=== PATIENT | male | born 1960 | race Caucasian/White ===

== ENCOUNTER → 2018-03-27 | Outpatient (CLI) | payer BC ==
--- NOTE | 2018-03-27 07:33 | US ---
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 Abnormal blood work. EXAM MEASUREMENTS: Liver Length: 17.4 cm Gallbladder Wall: 0.1 cm CBD: 0.3 cm Right Kidney: 12.0 x 5.4 x 4.6 cm Pancreas: Obscured by bowel gas Liver: There is increased and coarsened echogenicity of the hepatic parenchyma with diminished visua lization of the portal triads limiting evaluation for underlying hepatic masses. Gallbladder: comet tail artifacts coming from anterior wall without dirty shadowing therefore findin gs are most compatible with subsegmental adenomyomatosis. Additionally there is no gallbladder wall t hickening or pericholecystic fluid. Evidence for sonographic Pearce's sign: No CBD: wnl Right Kidney: No hydronephrosis or masses seen IMPRESSION: 1. Coarsened and hyperechoic hepatic echotexture compatible the patient's known history of hepatocell ular disease. If there is abnormal AFP or further clinical concern screening MRI could be performed i n evaluation for small hepatocellular carcinomas. 2. Findings most compatible with subsegmental adenomyomatosis. 3. Obscuration of the pancreas by overlying bowel gas.
[2018-03-27 08:00] LABS: Basophils % (A) 0 %; Eosinophils # (A) 0.2 k/uL (0-0.7); Eosinophils % (A) 3 %; HCT 38.7 % (39.0-53.0); HGB 13.1 gm/dL (13.0-17.5); Lymphocytes # (A) 2.7 k/uL (1.0-4.8); Lymphocytes % (A) 53 %; MCH 30.2 pg (25.0-35.0); MCHC 33.9 g/dL (31.0-37.0); MCV 89.2 fL (80.0-100.0); Mean Platelet Volume 7.5; Monocytes # (A) 0.3 k/uL (0-1.0); Monocytes % (A) 5 %; Neutrophils # (A) 1.7 k/uL (1.3-7.7); Neutrophils % (A) 35 %; Platelet Count 157 k/uL (150-450); RBC 4.34 m/uL (4.30-5.90); RDW 13.5 % (11.5-15.5)
[2018-03-27 08:09] LABS: INR 1.1 (<1.2); Prothrombin Time 11.7 sec (9.0-12.0)
[2018-03-27 08:15] LABS: Bilirubin, Delta 0.1 mg/dL (0.0-0.2); Bilirubin,Unconjugated 0.2 mg/dL (0.0-1.1); Total Bilirubin 0.3 mg/dL (0.2-1.3); Total Protein 7.1 g/dL (6.3-8.2)
[2018-03-28 15:23] LABS: HCV Quant Log <1.08 (<1.08); HCV Quantitative Result <12 IU/mL (<12)
== END | disposition home or self-care (01) ==
LOC: RADUSWWP 06:51
PROVIDERS: ATTEND Internal Medicine Gastroenterology
DX: K76.89 Other specified diseases of liver (principal); B18.2 Chronic viral hepatitis C
CPT/HCPCS: 36415; 76705; 80076; 85025; 85610; 87522

== ENCOUNTER → 2018-05-26 | Outpatient (CLI) | payer BC ==
[2018-05-26 08:21] LABS: HGB 13.9 gm/dL (13.0-17.5); MCH 29.7 pg (25.0-35.0); MCV 89.9 fL (80.0-100.0); Mean Platelet Volume 6.8; Platelet Count 194 k/uL (150-450); RBC 4.67 m/uL (4.30-5.90); WBC 5.3 k/uL (3.8-10.6)
[2018-05-26 08:30] LABS: INR 1.1 (<1.2)
[2018-05-26 08:31] LABS: Prothrombin Time 11.3 sec (9.0-12.0)
[2018-05-26 16:11] LABS: Protein, Total 7.1 g/dL (6.2-8.2)
[2018-05-26 16:37] LABS: ALT 171 U/L (10-49); AST 110 U/L (14-35); Albumin/Globulin Ratio 1.39 (1.60-3.17); Alkaline Phosphatase 70 U/L (41-126); Bilirubin, Conjugated <0.20 mg/dL (0.20-0.40); Globulin 3.1 g/dL (1.6-3.3); Total Bilirubin 0.3 mg/dL (0.3-1.2); Total Protein 7.4 g/dL (6.2-8.2)
[2018-05-26 16:38] LABS: Alpha Fetoprotein, Tumor Mkr <2.5 ng/mL (0.0-7.9)
[2018-05-27 12:23] LABS: Gamma Globulin 1.41 g/dL (0.70-1.50)
== END | disposition home or self-care (01) ==
LOC: LABWHC1 07:57
PROVIDERS: ATTEND Physician Assistant
DX: R79.89 Other specified abnormal findings of blood chemistry (principal)
CPT/HCPCS: 36415; 80076; 82105; 83516; 84165; 85027; 85610; 86038

== ENCOUNTER 2018-07-04 12:14 | Emergency (ER) | payer BC ==
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
[2018-07-04] MEDS ORDERED: ONDANSETRON 4 MG/2 ML VIAL IVP STA (13:55)
[2018-07-04] MEDS ORDERED: MORPHINE SULFATE 4 MG/ML SYRINGE IVP STA (13:56)
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
[2018-07-04] MEDS ORDERED: LIDOCAINE 1% INJ 10MG/ML (20 ML MDV) SQ ONE (16:46)
[2018-07-04 17:33] VITALS: BP 149/88; PULSE 86; RESP 16; TEMP 97.9
== END 2018-07-04 17:32 | disposition home or self-care (01) ==
LOC: EC 12:14
DX: S02.2XXA Fracture of nasal bones, initial encounter for closed fracture (principal); S05.32XA Ocular laceration without prolapse or loss of intraocular tissue, left eye, initial encounter; S01.511A Laceration without foreign body of lip, initial encounter; Z79.890 Hormone replacement therapy; Z79.899 Other long term (current) drug therapy; W38.XXXA Explosion and rupture of other specified pressurized devices, initial encounter; Y93.89 Activity, other specified
CPT/HCPCS: 70110; 70486; 70450; 99284; 12011; 96374; 96375; J2270; J2405; J2001

== ENCOUNTER 2019-10-07 16:40 | Emergency (ER) | payer BC ==
[2019-10-07 16:54] VITALS: BP 107/57; PULSE 101; RESP 18; TEMP 98.1
[2019-10-07] MEDS ORDERED: KETOROLAC 60 MG/2 ML VIAL IM STA (17:13)
[2019-10-07] MEDS ORDERED: CEPHALEXIN 500MG STARTER PACK 4 CAP BTL PO STA (17:13)
[2019-10-07] MEDS ORDERED: CEPHALEXIN 500 MG CAP PO STA (17:13)
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
== END 2019-10-07 17:37 | disposition home or self-care (01) ==
LOC: EC 16:40
DX: L03.113 Cellulitis of right upper limb (principal); E07.9 Disorder of thyroid, unspecified; Z79.890 Hormone replacement therapy; Z79.899 Other long term (current) drug therapy
CPT/HCPCS: 99283; 96372; J1885

== ENCOUNTER → 2020-04-22 | Outpatient (CLI) | payer BC ==
--- NOTE | 2020-04-22 09:49 | US ---
EXAMINATION TYPE: US liver DATE OF EXAM: 04/22/2020 COMPARISON: US CLINICAL HISTORY: R94.5 abnormal liver function test. Patient stated had Hepatitis C 20 years ago EXAM MEASUREMENTS: Liver Length: 19.3 cm Gallbladder Wall: 0.2 cm CBD: 0.5 cm Right Kidney: 11.4 x 6.3 x 4.7 cm Pancreas: hyperechoic with mid and tail obscured by overlying bowel gas Liver: enlarged, hyperechoic to right kidney and attenuated posteriorly suggests fatty liver Gallbladder: comet tail artifact seen on wall superiorly, with appearance of adenomyomatosis at fund us (echogenic, heterogeneous wall thickening). Evidence for sonographic Pearce's sign: no CBD: wnl Right Kidney: wnl IMPRESSION: Hepatomegaly with underlying fatty hepatic infiltration. Suspect adenomyomatosis of the gallbladder.
== END | disposition home or self-care (01) ==
LOC: RADUSWWP 08:28
PROVIDERS: ATTEND Internal Medicine
DX: R16.0 Hepatomegaly, not elsewhere classified (principal); K76.0 Fatty (change of) liver, not elsewhere classified
CPT/HCPCS: 76705

== ENCOUNTER → 2020-04-22 | Outpatient (CLI) | payer BC ==
[2020-04-22 15:37] LABS: Alpha Fetoprotein, Tumor Mkr 2.7 ng/mL (0.0-7.9)
[2020-04-22 15:51] LABS: Basophils # (A) 0.03 X 10*3/uL (0.00-0.10); Basophils % (A) 0.7 %; Eosinophils # (A) 0.13 X 10*3/uL (0.04-0.35); Eosinophils % (A) 2.9 %; HCT 40.3 % (39.6-50.0); HGB 13.7 g/dL (13.0-17.0); Lymphocytes # (A) 1.69 X 10*3/uL (0.90-5.00); Lymphocytes % (A) 37.1 %; MCH 29.7 pg (27.0-32.0); MCV 87.2 fL (80.0-97.0); Mean Platelet Volume 12.3 fL (9.5-12.2); Monocytes # (A) 0.53 X 10*3/uL (0.20-1.00); Monocytes % (A) 11.6 %; Neutrophils # (A) 2.16 X 10*3/uL (1.80-7.70); Neutrophils % (A) 47.3 %; Platelet Count 165 X 10*3/uL (140-440); RBC 4.62 X 10*6/uL (4.40-5.60); RDW 12.9 % (11.5-14.5); WBC 4.56 X 10*3/uL (4.50-10.00)
[2020-04-22 17:47] LABS: ALT 84 U/L (10-49); AST 69 U/L (14-35); Albumin/Globulin Ratio 1.53 (1.60-3.17); Alkaline Phosphatase 82 U/L (41-126); Bilirubin, Conjugated <0.20 mg/dL (0.20-0.40); Total Bilirubin 0.3 mg/dL (0.3-1.2); Total Protein 7.6 g/dL (6.2-8.2)
== END | disposition home or self-care (01) ==
LOC: LABWHC1 09:21
PROVIDERS: ATTEND Physician Assistant
DX: B18.2 Chronic viral hepatitis C (principal)
CPT/HCPCS: 36415; 80076; 82105; 85025; 87522

== ENCOUNTER → 2020-08-10 | Outpatient (CLI) | payer BC ==
--- NOTE | 2020-08-10 16:39 | XR ---
EXAMINATION TYPE: XR lumbar spine 2 or 3V DATE OF EXAM: 08/10/2020 CLINICAL HISTORY: Patient fell off a ladder 2 weeks ago and landed on his right hip and ankle. Patien t complains of painful to right hip, right ankle and right SI joint. TECHNIQUE: Frontal, lateral, and oblique images of the lumbar spine are obtained. COMPARISON: None FINDINGS: There are 5 nonrib-bearing lumbar-type vertebral bodies. Sacroiliac joints appear symmetric . There is straightening of the normal lumbar lordosis likely due to positioning or muscle spasm. Billy rowing of the intervertebral disc spaces at L2-3, L3-4, L4-5 and L5-S1. Multiple anterior osteophytes . No significant spondylolisthesis is seen. No loss of vertebral body height. Atherosclerotic ulcerat ion of the abdominal aorta. IMPRESSION: 1. No loss of vertebral body height suggest acute compression fracture of lumbar spine. Sacroiliac aamir ints are symmetric. 2. Multilevel intervertebral disc space narrowing of L2-3 to L5-S1. No significant spondylolisthesis. Multiple anterior ossifies.
--- NOTE | 2020-08-10 16:48 | XR ---
EXAMINATION TYPE: XR Hip Complete RT DATE OF EXAM: 08/10/2020 CLINICAL HISTORY: 59-year-old male with fall from a ladder 2 weeks ago. Patient has right hip pain. TECHNIQUE: AP and frogleg views of the right hip are obtained. COMPARISON: None. FINDINGS: There is no acute fracture/dislocation evident in the right hip. Mild narrowing of the sup erior compartment joint space with subchondral sclerosis acetabulum. This is suggestive mild osteopor osis. The overlying soft tissue appears unremarkable. IMPRESSION: There is no acute fracture or dislocation in the right hip. Mild osteoporosis of the rig ht hip.
== END | disposition home or self-care (01) ==
LOC: RADXRMAIN 10:21
PROVIDERS: ATTEND Internal Medicine
DX: M85.851 Other specified disorders of bone density and structure, right thigh (principal); M51.37 Other intervertebral disc degeneration, lumbosacral region
CPT/HCPCS: 72100; 73502

== ENCOUNTER → 2020-08-29 | Outpatient (CLI) | payer BC ==
--- NOTE | 2020-08-29 08:29 | CT ---
EXAMINATION TYPE: CT sinus wo con DATE OF EXAM: 08/29/2020 COMPARISON: 07/04/2018 HISTORY: 59-year-old male J32.9, Facial pressure and pain. CT DLP: 603 mGycm Automated exposure control for dose reduction was used. TECHNIQUE: Noncontrast axial views of the paranasal sinuses were obtained. Coronal reconstructions pe rformed. FINDINGS: PARANASAL SINUSES: Moderate mucosal thickening right maxillary sinus and right ethmoid air cells. Mild mucosal thickening right frontal sinus. Trace mucosal thickening left sphenoid sinus and left maxillary sinus. There is no air-fluid level. Slight reactive kimani- osteogenesis involving the right maxillary sinus. There is no destruction of the osseous daugherty of the paranasal sinuses. THE NASAL CAVITY: The osteomeatal complexes are patent. Leftward nasal septal deviation. Old fractures of the nasal bones and maxillary spine. The imaged brain and orbits are normal in appearance. Mastoid air cells are only partially visualized. Reformatted images confirm above findings. IMPRESSION: 1. Moderate mucosal thickening of the right maxillary sinus and right ethmoid air cells. We note some mild reactive new osteogenesis of the right maxillary sinus daugherty. 2. Additional scattered trace to mild mucosal thickening within the remaining paranasal sinuses. 3. Leftward nasal septal deviation. Old nasal bone and maxillary spine fractures.
== END | disposition home or self-care (01) ==
LOC: RADCTMAIN 07:22
PROVIDERS: ATTEND Otolaryngology
DX: J34.2 Deviated nasal septum (principal)
CPT/HCPCS: 70486

== ENCOUNTER 2020-11-02 07:19 | Day surgery (SDC) | payer BC ==
[2020-10-31 08:53] VITALS: BMI 27.3
[~2020-11-02 07:19] MED LIST: DEXAMETHASONE SOD PHOSPHATE 4 MG/ML 1 ML VIAL IV ONE; DEXAMETHASONE SOD PHOSPHATE 4 MG/ML 1 ML VIAL IV PRN; FAMOTIDINE 20 MG/2 ML VIAL IV PRN; HYDROmorphone 0.5 MG/0.5 ML SYRINGE IVP PRN; LACTATED RINGERS 1,000 ML IV SCH; ONDANSETRON 4 MG/2 ML VIAL IVP ONE; ONDANSETRON 4 MG/2 ML VIAL IVP PRN
[2020-11-02] MEDS: OXYMETAZOLINE 0.05% NASL SPRAY 1 SPRAY BOTTLE EA NOSTRIL PRN ×5 (08:10→08:29)
[2020-11-02 08:12] LABS: Glucose,Whole Blood 106 mg/dL (75-99)
[2020-11-02] MEDS ORDERED: MIDAZOLAM 2 MG/2 ML VIAL ONE (08:40)
[2020-11-02] MEDS ORDERED: LIDOCAINE 1% INJ 10MG/ML (20 ML MDV) ONE ×2 (08:40→09:23)
[2020-11-02] MEDS ORDERED: SUCCINYLCHOLINE CHLORIDE 100 MG/5 ML SYR IV ONE ×2 (08:40→09:23)
[2020-11-02] MEDS ORDERED: fentaNYL (PF) 50 MCG/ML 2 ML AMP ONE ×2 (08:40→09:23)
[2020-11-02] MEDS ORDERED: PROPOFOL 10 MG/ML 20 ML VIAL IV ONE ×2 (08:40→09:23)
[2020-11-02] MEDS ORDERED: LIDOCAINE 0.5%-EPI 1:200,000 50 ML VIAL SUBMUCOSAL ONE ×2 (08:56)
[2020-11-02] MEDS ORDERED: BACITRACIN ZINC 500 UNIT/GM OINT 28.4 GM TUBE TOPICAL ONE (09:02)
--- NOTE | 2020-11-02 10:03 | P.OP ---
Date of Procedure: 11/02/20 Preoperative Diagnosis: Deviated nasal septum Inferior turbinate hypertrophy Right-sided chronic sinusitis Right sided oral antral fistula Postoperative Diagnosis: Same Procedure(s) Performed: Septoplasty Inferior turbinoplasty Right-sided endoscopic sinus surgery including right maxillary antrostomy with removal right maxillary sinus, right anterior and posterior ethmoidectomy Repair right-sided oral antral fistula left buccal mucosa rotation advancement flap Anesthesia: VAISHALI Surgeon: Chu Peralta Estimated Blood Loss (ml): 5 Pathology: other (Nasal septal bone and cartilage of sinus contents) Condition: stable Disposition: PACU Indications for Procedure: Is a 60-year-old white male who had the right maxillary tooth extracted several months ago with resultant oral antral fistula. He also has chronic nasal airway obstruction bilaterally left greater than right and also chronic sinusitis on the right based on symptoms as well as computed tomography scan which showed chronic inflammation in the right maxillary and right ethmoid sinuses Operative Findings: Nasal septum deviated to left, inferior turbinate hypertrophy, mucosal thickening right maxillary and right ethmoid sinuses, right maxilla oral antral fistula, purulent discharge from the right middle meatus which was cultured as well as from the fistula intraorally Description of Procedure: The patient was brought into the operative suite and placed in a supine position. The patient underwent induction of general anesthesia with oral endotracheal intubation without difficulty. The patient was prepped and draped in the usual aseptic fashion with the orbits in the operating field for monitoring to the case and the computed tomography scan was on the computer screen for review throughout the case. 1% lidocaine with 1 :100,000 epinephrine was infused submucosally into both sides of the nasal septum as well as the lateral nasal wall and anterior tips of the middle turbinates. While this was taking vasoconstrictive effect the inferior turbinates were infractured with [place] elevator and partial submucous resection of the inferior turbinates was performed with a portion of the submucosal soft tissue and the inferior turbinate bone removed with Coblation device. The inferior turbinates were then outfractured with the [place] elevator. A left hemitransfixion incision was then made with the mucoperichondrial and mucoperiosteal flap on the left elevated. The bony cartilaginous junction was disarticulated and the mucoperiosteal flap on the right was elevated. Bony nasal septal deformities were removed with Narcisa forceps and an inferior cartilaginous strip was removed leaving a full 1.5 cm caudal strut. Checking intranasally this corrected the nasoseptal deformities and the hemitransfixion incision was closed with a running 4-0 chromic suture. Full 0 endoscopic examination is performed bilaterally. Proceeding on the right, the middle turbinate was medialized. The maxillary ostium was located with a ballpoint probe and an infundibulotomy was performed followed by uncinectomy. Air was purulent drainage coming from the maxillary ostium and this was cultured The maxillary antrostomy was enlarged at the expense of the anterior and posterior fontanelle taking care anteriorly not to injure the lacrimal bone. The maxillary sinus was evaluated with 30 and 70 endoscope .[Abnormal appearing tissue was removed from the maxillary sinus]. Anterior and posterior ethmoidectomy were then performed from anterior to posterior to the level of the skull base. The roof of the anterior ethmoid air cells were then cleaned from posterior to anterior using up-biting Blakesley forceps. Once this was completed, standard nasal pore nasal dressing was placed in the middle meatus under direct visualization Bilateral Gerard airway splints coated with bacitracin ointment were placed and sutured transseptally with a 4-0 nylon suture. Attention was then turned to the oral cavity. 1% lidocaine with 1 100,000 epinephrine was infused submucosally in field block fashion at the site of the fistula. The fistula tract itself was denuded of mucosal with the edges freshened. A buccal flap was then developed from lateral and was rotated and advanced into position and sutured circumferentially at the defect with 5-0 Vicryl suture. The defect from the buccal flap was then closed with 4-0 Vicryl. The patient was suctioned in oral gastric fashion and was allowed to emerge from general anesthesia having tolerated procedure well and was extubated in the operating suite and transferred to the postoperative recovery area in sati sfactory condition.
[2020-11-02 10:09] VITALS: TEMP 97.4
[2020-11-02 11:01] LABS: Glucose,Whole Blood 162 mg/dL (75-99)
[2020-11-02 11:12] VITALS: RESP 18
[2020-11-02 11:43] VITALS: BP 143/78; PULSE 78
== END 2020-11-02 11:50 | disposition home or self-care (01) ==
LOC: OR 07:19
PROVIDERS: ATTEND Otolaryngology
DX: J34.2 Deviated nasal septum (principal); J34.3 Hypertrophy of nasal turbinates; I10 Essential (primary) hypertension; J32.8 Other chronic sinusitis; K12.2 Cellulitis and abscess of mouth; L98.8 Other specified disorders of the skin and subcutaneous tissue; E11.9 Type 2 diabetes mellitus without complications; F32.9 Major depressive disorder, single episode, unspecified; E07.9 Disorder of thyroid, unspecified; Z98.890 Other specified postprocedural states; B19.20 Unspecified viral hepatitis C without hepatic coma; Z79.84 Long term (current) use of oral hypoglycemic drugs; Z79.890 Hormone replacement therapy; Z79.899 Other long term (current) drug therapy; Z87.891 Personal history of nicotine dependence
CPT/HCPCS: 88305; 88300; 87070; 87205; 87075; 87077; 87186; 31259; 31256; 30520; 14040; J2250; J1100; J2405; J0690; J2001; J3010; J0330; J2704

== ENCOUNTER 2021-11-11 12:18 | Inpatient (IN) | payer BC ==
[2021-11-11] MEDS ORDERED: HYDROmorphone 0.5 MG/0.5 ML SYRINGE IVP STA (12:25)
--- NOTE | 2021-11-11 12:26 | ED ---
Fall HPI - General Stated Complaint: Fall Time Seen by Provider: 11/11/21 12:20 Source: patient Mode of arrival: EMS - History of Present Illness Initial Comments: Patient is 61-year-old man who was working on a roof and then fell landing on his right side. The patient complains of having right-sided chest, shoulder pain. He states the pain is worse when he takes a breath in. He is denying head pain. No loss consciousness. Patient states she is able to move everything. No sensory loss. MD Complaint: fall -: minutes(s) Fall From: other (From roof) When Fall Occurred: just prior to arrival Loss of Consciousness: none Prolonged Down Time?: no Location: neck, chest Severity: severe Quality: sharp - Related Data Home Medications Medication Instructions Recorded Confirmed Levothyroxine Sodium 100 mcg PO DAILY 07/04/18 11/11/21 Naproxen 500 mg PO BID 10/31/20 11/11/21 lisinopriL [Prinivil] 10 mg PO DAILY 10/31/20 11/11/21 metFORMIN HCL [Glucophage] 500 mg PO DAILY 10/31/20 11/11/21 Citalopram Hydrobromide [CeleXA] 20 mg PO DAILY 11/11/21 11/11/21 Allergies Allergy/AdvReac Type Severity Reaction Status Date / Time No Known Allergies Allergy Verified 11/11/21 14:06 Review of Systems ROS Statement: Those systems with pertinent positive or pertinent negative responses have been documented in the HPI. ROS Other: All systems not noted in ROS Statement are negative. Constitutional: Denies: fever, weakness Eyes: Denies: vision change ENT: Denies: epistaxis Respiratory: Denies: cough, dyspnea, hemoptysis Cardiovascular: Reports: chest pain. Denies: palpitations Gastrointestinal: Denies: abdominal pain, vomiting Genitourinary: Denies: testicular pain Musculoskeletal: Reports: as per HPI, arthralgia. Denies: back pain Skin: Denies: rash Neurological: Denies: headache, weakness, numbness, paresthesias, confusion Hematological/Lymphatic: Denies: easy bleeding Past Medical History Past Medical History: Diabetes Mellitus, Liver Disease, Osteoarthritis (OA), Thyroid Disorder Additional Past Medical History / Comment(s): hx hepatitis C-tx 2010, on rx for sinus infection History of Any Multi-Drug Resistant Organisms: MRSA Date of last positivie culture/infection: 11/02/20 MDRO Source:: Maxillary Sinus-Right Past Surgical History: No Surgical Hx Reported Additional Past Surgical History / Comment(s): oral surgery Past Anesthesia/Blood Transfusion Reactions: No Reported Reaction Smoking Status: Former smoker - Past Family History Mother Family Medical History: No Reported History General Exam General appearance: alert, in no apparent distress Head exam: Present: atraumatic, normocephalic Eye exam: Present: normal appearance. Absent: scleral icterus, conjunctival injection Neck exam: Present: normal inspection, other (In cervical collar). Absent: tenderness, meningismus Respiratory exam: Present: normal lung sounds bilaterally, chest wall tenderness. Absent: wheezes, rales, rhonchi Cardiovascular Exam: Present: regular rate, normal rhythm, normal heart sounds. Absent: systolic murmur, diastolic murmur, rubs, gallop GI/Abdominal exam: Present: soft. Absent: distended, tenderness, guarding, rebound, rigid, mass, pulsatile mass Extremities exam: Present: normal inspection, normal capillary refill. Absent: pedal edema, calf tenderness Back exam: Present: normal inspection. Absent: CVA tenderness (R), CVA tenderness (L), vertebral tenderness Neurological exam: Present: alert, oriented X3. Absent: motor sensory deficit Skin exam: Present: warm, dry, intact, normal color. Absent: rash Course Vital Signs 11/11/21 11/11/21 11/11/21 12:35 13:50 14:53 Temperature 98.5 F Pulse Rate 116 H 100 103 H Respiratory 20 21 24 Rate Blood Pressure 130/88 113/51 116/70 O2 Sat by Pulse 98 98 99 Oximetry - Reevaluation(s) Reevaluation #1: 11/11/21 16:[address] Tran, requiring cardiothoracic surgery. Medical Decision Making - Lab Data Result diagrams: 11/11/21 12:26 11/11/21 12:26 Lab Results 11/11/21 11/11/21 11/11/21 Range/Units 12:26 12:26 12:26 WBC 7.8 (3.8-10.6) k/uL RBC 4.97 (4.30-5.90) m/uL Hgb 14.1 (13.0-17.5) gm/dL Hct 44.1 (39.0-53.0) % MCV 88.9 (80.0-100.0) fL MCH 28.4 (25.0-35.0) pg MCHC 31.9 (31.0-37.0) g/dL RDW 13.0 (11.5-15.5) % Plt Count 210 (150-450) k/uL MPV 8.6 Neutrophils % 80 % Lymphocytes % 13 % Monocytes % 5 % Eosinophils % 1 % Basophils % 1 % Neutrophils # 6.2 (1.3-7.7) k/uL Lymphocytes # 1.0 (1.0-4.8) k/uL Monocytes # 0.4 (0-1.0) k/uL Eosinophils # 0.1 (0-0.7) k/uL Basophils # 0.1 (0-0.2) k/uL PT 11.1 (9.0-12.0) sec INR 1.0 (<1.2) APTT 21.5 L (22.0-30.0) sec Sodium (137-145) mmol/L Potassium (3.5-5.1) mmol/L Chloride (98-107) mmol/L Carbon Dioxide (22-30) mmol/L Anion Gap mmol/L BUN (9-20) mg/dL Creatinine (0.66-1.25) mg/dL Est GFR (CKD-EPI)AfAm (>60 ml/min/1.73 sqM) Est GFR (CKD-EPI)NonAf (>60 ml/min/1.73 sqM) Glucose (74-99) mg/dL Lactic Ac Sepsis Rflx Plasma Lactic Acid [place] (0.7-2.0) mmol/L Calcium (8.4-10.2) mg/dL Total Bilirubin (0.2-1.3) mg/dL AST (17-59) U/L ALT (4-49) U/L Alkaline Phosphatase (38-126) U/L Troponin I (0.000-0.034) ng/mL Total Protein (6.3-8.2) g/dL Albumin (3.5-5.0) g/dL Urine Color Light Yellow Urine Appearance Clear (Clear) Urine pH 7.0 (5.0-8.0) Ur Specific [place] >1.050 H (1.001-1.035) Urine Protein 1+ H (Negative) Urine Glucose (UA) Negative (Negative) Urine Ketones Negative (Negative) Urine Blood Small H (Negative) Urine Nitrite Negative (Negative) Urine Bilirubin Negative (Negative) Urine Urobilinogen <2.0 (<2.0) mg/dL Ur Leukocyte Esterase Negative (Negative) Urine RBC 27 H (0-5) /hpf Urine WBC 4 (0-5) /hpf Ur Squamous Epith Cells 1 (0-4) /hpf Urine Bacteria Few H (None) /hpf Urine Mucus Rare H (None) /hpf Urine Opiates Screen Detected H (NotDetected) Ur Oxycodone Screen Not Detected (NotDetected) Urine Methadone Screen Not Detected (NotDetected) Ur Propoxyphene Screen Not Detected (NotDetected) Ur Barbiturates Screen Not Detected (NotDetected) U Tricyclic Antidepress Not Detected (NotDetected) Ur Phencyclidine Scrn Not Detected (NotDetected) Ur Amphetamines Screen Detected H (NotDetected) U Methamphetamines Scrn Detected H (NotDetected) U Benzodiazepines Scrn Not Detected (NotDetected) Urine Cocaine Screen Not Detected (NotDetected) U Marijuana (THC) Screen Not Detected (NotDetected) Serum Alcohol mg/dL Blood Type Blood Type Confirm Blood Type Recheck Bld Type Recheck Status Antibody Screen Spec Expiration Date 11/11/21 11/11/21 11/11/21 Range/Units 12:26 12:26 12:26 WBC (3.8-10.6) k/uL RBC (4.30-5.90) m/uL Hgb (13.0-17.5) gm/dL Hct (39.0-53.0) % MCV (80.0-100.0) fL MCH (25.0-35.0) pg MCHC (31.0-37.0) g/dL RDW (11.5-15.5) % Plt Count (150-450) k/uL MPV Neutrophils % % Lymphocytes % % Monocytes % % Eosinophils % % Basophils % % Neutrophils # (1.3-7.7) k/uL Lymphocytes # (1.0-4.8) k/uL Monocytes # (0-1.0) k/uL Eosinophils # (0-0.7) k/uL Basophils # (0-0.2) k/uL PT (9.0-12.0) sec INR (<1.2) APTT (22.0-30.0) sec Sodium 144 (137-145) mmol/L Potassium 4.1 (3.5-5.1) mmol/L Chloride 109 H (98-107) mmol/L Carbon Dioxide 22 (22-30) mmol/L Anion Gap 13 mmol/L BUN 17 (9-20) mg/dL Creatinine 0.90 (0.66-1.25) mg/dL Est GFR (CKD-EPI)AfAm >90 (>60 ml/min/1.73 sqM) Est GFR (CKD-EPI)NonAf >90 (>60 ml/min/1.73 sqM) Glucose 185 H (74-99) mg/dL Lactic Ac Sepsis Rflx Plasma Lactic Acid [place] (0.7-2.0) mmol/L Calcium 9.4 (8.4-10.2) mg/dL Total Bilirubin 0.5 (0.2-1.3) mg/dL AST 101 H (17-59) U/L ALT 67 H (4-49) U/L Alkaline Phosphatase 82 (38-126) U/L Troponin I <0.012 (0.000-0.034) ng/mL Total Protein 8.3 H (6.3-8.2) g/dL Albumin 4.7 (3.5-5.0) g/dL Urine Color Urine Appearance (Clear) Urine pH (5.0-8.0) Ur Specific [place] (1.001-1.035) Urine Protein (Negative) Urine Glucose (UA) (Negative) Urine Ketones (Negative) Urine Blood (Negative) Urine Nitrite (Negative) Urine Bilirubin (Negative) Urine Urobilinogen (<2.0) mg/dL Ur Leukocyte Esterase (Negative) Urine RBC (0-5) /hpf Urine WBC (0-5) /hpf Ur Squamous Epith Cells (0-4) /hpf Urine Bacteria (None) /hpf Urine Mucus (None) /hpf Urine Opiates Screen (NotDetected) Ur Oxycodone Screen (NotDetected) Urine Methadone Screen (NotDetected) Ur Propoxyphene Screen (NotDetected) Ur Barbiturates Screen (NotDetected) U Tricyclic Antidepress (NotDetected) Ur Phencyclidine Scrn (NotDetected) Ur Amphetamines Screen (NotDetected) U Methamphetamines Scrn (NotDetected) U Benzodiazepines Scrn (NotDetected) Urine Cocaine Screen (NotDetected) U Marijuana (THC) Screen (NotDetected) Serum Alcohol <10 mg/dL Blood Type AB Positive Blood Type Confirm Blood Type Recheck No Previous Record Bld Type Recheck Status CABO Indicated Antibody Screen NEGATIVE Spec Expiration Date 11/14/2021232511/11/21 11/11/21 11/11/21 Range/Units 12:26 12:36 12:59 WBC (3.8-10.6) k/uL RBC (4.30-5.90) m/uL Hgb (13.0-17.5) gm/dL Hct (39.0-53.0) % MCV (80.0-100.0) fL MCH (25.0-35.0) pg MCHC (31.0-37.0) g/dL RDW (11.5-15.5) % Plt Count (150-450) k/uL MPV Neutrophils % % Lymphocytes % % Monocytes % % Eosinophils % % Basophils % % Neutrophils # (1.3-7.7) k/uL Lymphocytes # (1.0-4.8) k/uL Monocytes # (0-1.0) k/uL Eosinophils # (0-0.7) k/uL Basophils # (0-0.2) k/uL PT (9.0-12.0) sec INR (<1.2) APTT (22.0-30.0) sec Sodium (137-145) mmol/L Potassium (3.5-5.1) mmol/L Chloride (98-107) mmol/L Carbon Dioxide (22-30) mmol/L Anion Gap mmol/L BUN (9-20) mg/dL Creatinine (0.66-1.25) mg/dL Est GFR (CKD-EPI)AfAm (>60 ml/min/1.73 sqM) Est GFR (CKD-EPI)NonAf (>60 ml/min/1.73 sqM) Glucose (74-99) mg/dL Lactic Ac Sepsis Rflx Y Plasma Lactic Acid [place] 3.0 H* (0.7-2.0) mmol/L Calcium (8.4-10.2) mg/dL Total Bilirubin (0.2-1.3) mg/dL AST (17-59) U/L ALT (4-49) U/L Alkaline Phosphatase (38-126) U/L Troponin I (0.000-0.034) ng/mL Total Protein (6.3-8.2) g/dL Albumin (3.5-5.0) g/dL Urine Color Urine Appearance (Clear) Urine pH (5.0-8.0) Ur Specific [place] (1.001-1.035) Urine Protein (Negative) Urine Glucose (UA) (Negative) Urine Ketones (Negative) Urine Blood (Negative) Urine Nitrite (Negative) Urine Bilirubin (Negative) Urine Urobilinogen (<2.0) mg/dL Ur Leukocyte Esterase (Negative) Urine RBC (0-5) /hpf Urine WBC (0-5) /hpf Ur Squamous Epith Cells (0-4) /hpf Urine Bacteria (None) /hpf Urine Mucus (None) /hpf Urine Opiates Screen (NotDetected) Ur Oxycodone Screen (NotDetected) Urine Methadone Screen (NotDetected) Ur Propoxyphene Screen (NotDetected) Ur Barbiturates Screen (NotDetected) U Tricyclic Antidepress (NotDetected) Ur Phencyclidine Scrn (NotDetected) Ur Amphetamines Screen (NotDetected) U Methamphetamines Scrn (NotDetected) U Benzodiazepines Scrn (NotDetected) Urine Cocaine Screen (NotDetected) U Marijuana (THC) Screen (NotDetected) Serum Alcohol mg/dL Blood Type Blood Type Confirm AB Positive Blood Type Recheck Bld Type Recheck Status Antibody Screen Spec Expiration Date - EKG Data -: EKG Interpreted by Me EKG shows normal: sinus rhythm, axis (Normal), intervals (Normal), QRS complexes (Normal), ST-T waves (Normal) Rate: tachycardia (Rate 101 bpm) Critical Care Time Critical Care Time: Yes (40 minutes) Disposition Clinical Impression: Fall, Multiple rib fractures, Scapula fracture, Fracture, clavicle, Lumbar vertebral fracture, Pneumothorax Disposition: ADMITTED IP TO THIS [facility] Condition: Serious Is patient prescribed a controlled substance at d/c from ED?: No
--- NOTE | 2021-11-11 12:45 | XR ---
EXAMINATION TYPE: XR pelvis AP view DATE OF EXAM: 11/11/2021 12:41 PM INDICATION: Patient age:Male; 61 years old; Reason for study: Trauma; PHH. COMPARISON: None TECHNIQUE: The pelvis was examined in a single projection. FINDINGS: There is no evidence of fracture or dislocation. There is no soft tissue abnormality. No a bnormal calcifications are present. Multilevel degenerative changes of the lower spine. IMPRESSION: No acute osseous pathology.
[2021-11-11 12:47] LABS: Basophils # (A) 0.1 k/uL (0-0.2); Basophils % (A) 1 %; Eosinophils # (A) 0.1 k/uL (0-0.7); Eosinophils % (A) 1 %; HCT 44.1 % (39.0-53.0); HGB 14.1 gm/dL (13.0-17.5); Lymphocytes % (A) 13 %; MCH 28.4 pg (25.0-35.0); MCHC 31.9 g/dL (31.0-37.0); MCV 88.9 fL (80.0-100.0); Mean Platelet Volume 8.6; Monocytes # (A) 0.4 k/uL (0-1.0); Monocytes % (A) 5 %; Neutrophils # (A) 6.2 k/uL (1.3-7.7); Neutrophils % (A) 80 %; Platelet Count 210 k/uL (150-450); RBC 4.97 m/uL (4.30-5.90); WBC 7.8 k/uL (3.8-10.6)
[2021-11-11 12:58] LABS: ALT 67 U/L (4-49); AST 101 U/L (17-59); African American GFR (CKD) >90 (>60 ml/min/1.73 sqM); Albumin 4.7 g/dL (3.5-5.0); Alcohol <10 mg/dL; Alkaline Phosphatase 82 U/L (38-126); Anion Gap 13 mmol/L; Blood Urea Nitrogen 17 mg/dL (9-20); Calcium 9.4 mg/dL (8.4-10.2); Carbon Dioxide 22 mmol/L (22-30); Chloride 109 mmol/L (98-107); Glucose 185 mg/dL (74-99); Non-African American GFR(CKD) >90 (>60 ml/min/1.73 sqM); Potassium 4.1 mmol/L (3.5-5.1); Sodium 144 mmol/L (137-145); Total Bilirubin 0.5 mg/dL (0.2-1.3); Total Protein 8.3 g/dL (6.3-8.2)
[2021-11-11 13:11] LABS: Prothrombin Time 11.1 sec (9.0-12.0)
--- NOTE | 2021-11-11 13:11 | XR ---
EXAMINATION TYPE: XR chest 1V portable DATE OF EXAM: 11/11/2021 12:41 PM COMPARISON: None TECHNIQUE: XR chest 1V portable Frontal view of the chest. CLINICAL INDICATION:Male, 61 years old with history of trauma; FINDINGS: Limited evaluation due to poor penetration. Lungs/Pleura: No pleural effusion or focal consolidation. Small right apical pneumothorax.. 1.7 cm no dule in the right lung base. Pulmonary vascularity: Unremarkable. Heart/mediastinum: Cardiomediastinal silhouette is unremarkable. Atherosclerotic calcifications are seen in the aorta. Musculoskeletal: Right midclavicular shaft comminuted fracture with mild displacement. IMPRESSION: 1. Small right apical pneumothorax. 2. Comminuted right clavicular fracture. 3. 1.7 cm nodule in the right lung base. Further evaluation with CT chest is recommended. Findings discussed with Dr. Fofana at 1:08 PM on 11/11/2021.
--- NOTE | 2021-11-11 13:20 | CT ---
EXAMINATION TYPE: CT brain cspine wo con CT DLP: 1475.5 mGycm, Automated exposure control for dose reduction was used. DATE OF EXAM: 11/11/2021 1:12 PM COMPARISON: CT brain 07/04/2018. CLINICAL INDICATION:Male, 61 years old with history of fall injury; Fall TECHNIQUE: Brain: Multiple axial CT images of the brain were obtained without IV contrast. Cspine: Axial CT images from the skull base to the inferior aspect of T2 we obtained without intraven ous contrast. Coronal and sagittal reformatted images were also reviewed. FINDINGS: Brain: Extra-axial spaces: No abnormal extra-axial fluid collections. Ventricular system: Within normal limits Cerebral parenchyma: No acute intraparenchymal hemorrhage or mass effect. The van-white junction is well differentiated. Cerebellum: Unremarkable. Mass effect: No evidence of midline shift. Intracranial vasculature: unremarkable Soft tissues: Normal. Calvarium/osseous structures: No depressed skull fracture. Paranasal sinuses and mastoid air cells: The mastoid air cells are clear. Mild mucosal thickening of the right maxillary sinus. Visualized orbits: Orbital contents are intact. Cervical spine: Fracture: No cervical spine fracture. Comminuted partially visualized fracture of the mid to distal r ight clavicle. Nondisplaced comminuted fracture of the posterior right second rib. Osseous structures: Multilevel degenerative disc disease. Vertebral alignment: Within normal limits. Spinal canal/Neural Foramina: Disc osteophyte complexes at C5-C6 and C6-C7 with at least mild spinal canal stenosis. No evidence for significant neural foraminal stenosis. Neck soft tissues: Prevertebral soft tissues are within normal limits. Other: The airway is patent. Small right apical pneumothorax. IMPRESSION: 1. No acute intracranial process. 2. Small right apical pneumothorax as demonstrated on chest x-ray. 3. No evidence of cervical spine fracture. 4. Mild multilevel degenerative disc disease. 5. Comminuted fractures of the posterior right second rib and right clavicle.
[2021-11-11] MEDS ORDERED: HYDROmorphone 1 MG/ML 1 ML SYRINGE IVP STA (13:32)
[2021-11-11 13:35] LABS: Partial Thromboplastin Time 21.5 sec (22.0-30.0)
--- NOTE | 2021-11-11 13:38 | CT ---
EXAMINATION TYPE: CT ChestAbdPelvis w con CT DLP: 9.7 mGycm, Automated exposure control for dose reduction was used. DATE OF EXAM: 11/11/2021 1:13 PM COMPARISON: Chest radiograph the same day, pelvic radiograph the same date, CT brain C-spine the same day. CLINICAL INDICATION:Male, 61 years old with history of fall injury; PHH, Fall Technique: Multiple axial images of the chest, abdomen, and pelvis were obtained following the intrav enous administration of 100 mL Isovue-300. Two-dimensional coronal and sagittal reconstructions were obtained. Findings: CHEST: LUNGS/ PLEURA: Small right pneumothorax with apical and basilar components. Trace right hemothorax. R ight basilar patchy consolidation. Right upper lobe 1.4 cm pulmonary nodule with laminated calcificat ion. Additional right lower lobe 1.3 cm) nodule with popcorn calcification. These nodules are consist ent with benign hamartomas/granulomas. Left basilar subsegmental atelectasis. AIRWAY: Patent and unremarkable.. HEART: Size within normal limits. No pericardial effusion. Coronary arterial calcifications.. MEDIASTINUM: Few calcified mediastinal and right hilar lymph nodes which are nonenlarged. No anterior mediastinal hematoma. VASCULATURE: No aortic aneurysm. MUSCULOSKELETAL: Comminuted right mid to distal shaft clavicular fracture with mild displacement. Non displaced posterior right second rib fracture. Additional nondisplaced posterior right 10th and 11th rib fractures. Moderately displaced right posterior lateral seventh and eighth rib fractures. Nondisp laced comminuted right scapular fracture. SOFT TISSUES/LYMPH NODES: No axillary adenopathy. Right posterolateral chest wall subcutaneous emphys derrick. LOWER NECK: No significant findings. ABDOMEN: ABDOMEN LIVER: Unremarkable GALLBLADDER AND BILE DUCTS: Unremarkable. PANCREAS: Unremarkable. SPLEEN: Unremarkable. ADRENAL GLANDS: Right adrenal is unremarkable. Indeterminate left adrenal gland 1.4 cm nodule with a Hounsfield unit of 34.. KIDNEYS AND URETERS: No evidence of hydronephrosis or renal calculus. The ureters are unremarkable. PELVIS BLADDER: Unremarkable REPRODUCTIVE: Unremarkable. ABDOMEN & PELVIS STOMACH AND BOWEL: Stomach and duodenum are unremarkable. No focal wall thickening or surrounding inf lammatory changes. No evidence of bowel obstruction. PERITONEUM: No evidence of pneumoperitoneum or free fluid. VASCULATURE: Mild atherosclerotic calcifications are present throughout the abdominal aorta and its b ranches. No abdominal aortic aneurysm. MUSCULOSKELETAL: Right L2-L4 transverse process fractures mild displacement of the right L4 transvers e process fracture. Multilevel degenerative disc disease. LYMPH NODES: No gross evidence for lymphadenopathy. SOFT TISSUE/ABDOMINAL WALL: Bilateral fat filled inguinal hernias right greater than left. IMPRESSION: 1. Small right pneumothorax with trace right hemothorax and right posterior lateral chest wall subcu taneous emphysema. 2. Right lower lobe consolidation which may represent atelectasis and/or contusion. 3. Multiple fractures involving the right clavicle, right shoulder, ribs 2, 7 and 8, and 10,11. Righ t L2-L4 transverse process fractures. 4. Right lower upper and lower lobe calcified nodules consistent with calcified granuloma/hamartoma. 5. Indeterminate left adrenal gland 1.4 cm nodule. Probably benign. Consider follow-up CT adrenal ma protocol 12 months.
[2021-11-11] MEDS ORDERED: NALOXONE 0.4 MG/ML 1 ML VIAL IV PRN (13:46)
[2021-11-11 13:57] LABS: Appearance,Urine Clear (Clear); Bacteria,Urine Few /hpf; Bilirubin,Urine Negative (Negative); Blood,Urine Small (Negative); Color,Urine Light Yellow; Glucose,Urine (UA) Negative (Negative); Ketones,Urine Negative (Negative); Leukocyte Esterase,Urine Negative (Negative); Mucus,Urine Rare /hpf; Nitrite,Urine Negative (Negative); Protein,Urine 1+ (Negative); RBC,Urine 27 /hpf (0-5); Squamous Epithelial Cell,Urine 1 /hpf (0-4); Urobilinogen,Urine <2.0 mg/dL (<2.0); WBC,Urine 4 /hpf (0-5)
[2021-11-11 14:03] LABS: Specific Gravity,Urine >1.050 (1.001-1.035)
[2021-11-11 14:04] LABS: Cocaine Screen,Urine Not Detected (NotDetected); Opiate Screen,Urine Detected (NotDetected); Phencyclidine Screen,Urine Not Detected (NotDetected); Urn Cannabinoid Scrn Not Detected (NotDetected)
[2021-11-11 14:05] LABS: Amphetamine Screen,Urine Detected (NotDetected); Barbiturate Screen,Urine Not Detected (NotDetected); Benzodiazepines Screen,Urine Not Detected (NotDetected); Methadone Screen, Urine Not Detected (NotDetected); Oxycodone Screen, Urine Not Detected (NotDetected); Tricyclic Antidepressant,Urine Not Detected (NotDetected)
--- NOTE | 2021-11-11 14:54 | CT ---
CT right shoulder HISTORY: Pain following trauma. COMPARISON: None. TECHNIQUE: Multiple axial images are obtained through the right shoulder. Coronal and sagittal 3-D im ages were generated and reviewed. FINDINGS: There is a markedly comminuted fracture with displacement of the mid right clavicle. There is a marke dly comminuted fracture with mild displacement of the scapula. The glenohumeral joint is intact altho ugh there are mild degenerative changes. The AC joint is intact IMPRESSION: Markedly comminuted fractures of the right clavicle and right scapula.
[2021-11-11 15:38] LABS: Glucose,Whole Blood 153 mg/dL (70-110)
[2021-11-11] MEDS: HYDROmorphone 1 MG/ML 1 ML SYRINGE IVP PRN (15:44)
[2021-11-11] MEDS: SODIUM CHLORIDE 0.9% 1,000 ML IV SCH (15:46)
[2021-11-11] MEDS: ONDANSETRON 4 MG/2 ML VIAL IVP PRN (16:56)
[2021-11-11] MEDS ORDERED: METOCLOPRAMIDE 5 MG/ML 2 ML VIAL IVP STA (18:23)
[2021-11-11] MEDS: traMADol 50 MG TAB PO PRN (19:53)
--- NOTE | 2021-11-11 20:42 | P.GSHP ---
History of Present Illness H&P Date: 11/11/21 Chief Complaint: Fall 7-year-old male came to the ER around noon after falling 20 feet approximately from his roof while working on his [employer]. Patient complaining of pain in the right chest region. Denies loss of consciousness. Patient has been evaluated in the ER by both the ER staff and also pulmonary. Patient with evidence of right scapular, right clavicular, right multiple rib fractures, transverse process fracture. Small pneumothorax and small hemothorax right side. No chest tube or thoracic vent at this time. - Review of Systems Comment: The patient denies any acute changes in vision or hearing, no dysphagia or odynophagia, no chest pain or shortness of breath, no dysuria or hematuria, no headache, no runny nose, no rectal bleeding or melena, no unexplained weight loss Past Medical History Past Medical History: Diabetes Mellitus, Liver Disease, Osteoarthritis (OA), Thyroid Disorder Additional Past Medical History / Comment(s): hx hepatitis C-tx 2010, on rx for sinus infection History of Any Multi-Drug Resistant Organisms: MRSA Date of last positivie culture/infection: 11/02/20 MDRO Source:: Maxillary Sinus-Right Past Surgical History: No Surgical Hx Reported Additional Past Surgical History / Comment(s): oral surgery Past Anesthesia/Blood Transfusion Reactions: No Reported Reaction Smoking Status: Former smoker - Past Family History Mother Family Medical History: No Reported History Medications and Allergies Home Medications Medication Instructions Recorded Confirmed Type Levothyroxine Sodium 100 mcg PO DAILY 07/04/18 11/11/21 History Naproxen 500 mg PO BID 10/31/20 11/11/21 History lisinopriL [Prinivil] 10 mg PO DAILY 10/31/20 11/11/21 History metFORMIN HCL [Glucophage] 500 mg PO DAILY 10/31/20 11/11/21 History Citalopram Hydrobromide [CeleXA] 20 mg PO DAILY 11/11/21 11/11/21 History Allergies Allergy/AdvReac Type Severity Reaction Status Date / Time No Known Allergies Allergy Verified 11/11/21 20:16 Surgical - Exam Vital Signs Temp Pulse Resp BP Pulse Ox 98.5 F 114 H 30 H 140/94 96 11/11/21 12:18 11/11/21 12:18 11/11/21 12:18 11/11/21 12:18 11/11/21 12:18 Physical exam: General: Well-developed, well-nourished HEENT: Normocephalic, sclerae nonicteric Chest: Right-sided chest and shoulder tenderness, pain with passive movement right shoulder, breath sounds equal Abdomen: Nontender, nondistended Extremities: No edema Neuro: Alert and oriented Results - Labs 11/11/21 12:26 11/11/21 12:26 Abnormal Lab Results - Last 24 Hours (Table) 11/11/21 11/11/21 11/11/21 Range/Units 12:26 12:26 12:26 APTT 21.5 L (22.0-30.0) sec Chloride 109 H (98-107) mmol/L Glucose 185 H (74-99) mg/dL POC Glucose (mg/dL) (70-110) mg/dL Plasma Lactic Acid Nemesio (0.7-2.0) mmol/L AST 101 H (17-59) U/L ALT 67 H (4-49) U/L Total Protein 8.3 H (6.3-8.2) g/dL Ur Specific [place] >1.050 H (1.001-1.035) Urine Protein 1+ H (Negative) Urine Blood Small H (Negative) Urine RBC 27 H (0-5) /hpf Urine Bacteria Few H (None) /hpf Urine Mucus Rare H (None) /hpf Urine Opiates Screen Detected H (NotDetected) Ur Amphetamines Screen Detected H (NotDetected) U Methamphetamines Scrn Detected H (NotDetected) 11/11/21 11/11/21 11/11/21 Range/Units 12:26 15:37 15:54 APTT (22.0-30.0) sec Chloride (98-107) mmol/L Glucose (74-99) mg/dL POC Glucose (mg/dL) 153 H (70-110) mg/dL Plasma Lactic Acid Nemesio 3.0 H* 3.3 H* (0.7-2.0) mmol/L AST (17-59) U/L ALT (4-49) U/L Total Protein (6.3-8.2) g/dL Ur Specific [place] (1.001-1.035) Urine Protein (Negative) Urine Blood (Negative) Urine RBC (0-5) /hpf Urine Bacteria (None) /hpf Urine Mucus (None) /hpf Urine Opiates Screen (NotDetected) Ur Amphetamines Screen (NotDetected) U Methamphetamines Scrn (NotDetected) Diabetes panel 11/11/21 Range/Units 12:26 Sodium 144 (137-145) mmol/L Potassium 4.1 (3.5-5.1) mmol/L Chloride 109 H (98-107) mmol/L Carbon Dioxide 22 (22-30) mmol/L BUN 17 (9-20) mg/dL Creatinine 0.90 (0.66-1.25) mg/dL Glucose 185 H (74-99) mg/dL Calcium 9.4 (8.4-10.2) mg/dL AST 101 H (17-59) U/L ALT 67 H (4-49) U/L Alkaline Phosphatase 82 (38-126) U/L Total Protein 8.3 H (6.3-8.2) g/dL Albumin 4.7 (3.5-5.0) g/dL Calcium panel 11/11/21 Range/Units 12:26 Calcium 9.4 (8.4-10.2) mg/dL Albumin 4.7 (3.5-5.0) g/dL Pituitary panel 11/11/21 Range/Units 12:26 Sodium 144 (137-145) mmol/L Potassium 4.1 (3.5-5.1) mmol/L Chloride 109 H (98-107) mmol/L Carbon Dioxide 22 (22-30) mmol/L BUN 17 (9-20) mg/dL Creatinine 0.90 (0.66-1.25) mg/dL Glucose 185 H (74-99) mg/dL Calcium 9.4 (8.4-10.2) mg/dL Adrenal panel 11/11/21 Range/Units 12:26 Sodium 144 (137-145) mmol/L Potassium 4.1 (3.5-5.1) mmol/L Chloride 109 H (98-107) mmol/L Carbon Dioxide 22 (22-30) mmol/L BUN 17 (9-20) mg/dL Creatinine 0.90 (0.66-1.25) mg/dL Glucose 185 H (74-99) mg/dL Calcium 9.4 (8.4-10.2) mg/dL Total Bilirubin 0.5 (0.2-1.3) mg/dL AST 101 H (17-59) U/L ALT 67 H (4-49) U/L Alkaline Phosphatase 82 (38-126) U/L Total Protein 8.3 H (6.3-8.2) g/dL Albumin 4.7 (3.5-5.0) g/dL Assessment and Plan (1) Fall Narrative/Plan: 61-year-old male with fall resulting in multiple injuries including clavicular, rib, scapular, transverse process fractures, pneumothorax with small hemothorax. Patient admitted to the ICU for close observation. Repeat chest x-ray tomorrow. Continue analgesics. Consults placed to orthopedics, pulmonary critical care, anesthesia, hospitalist service. Begin GI and DVT prophylaxis. Current Visit: Yes Status: Acute Code(s): W19.XXXA - UNSPECIFIED FALL, INITIAL ENCOUNTER SNOMED Code(s): 7899877
[2021-11-11 20:46] LABS: Glucose,Whole Blood 153 mg/dL (70-110)
[2021-11-11] MEDS: KETOROLAC 15 MG/ML 1 ML VIAL IVP PRN (22:28)
[2021-11-11] MEDS: HEPARIN SODIUM,PORCINE/PF 5,000 UNIT/0.5 ML SYRINGE SQ SCH (23:00)
[2021-11-12] MEDS: traMADol 50 MG TAB PO PRN ×4 (01:12→22:17)
[2021-11-12 05:01] LABS: Basophils % (A) 0 %; Eosinophils # (A) 0.1 k/uL (0-0.7); Eosinophils % (A) 1 %; HCT 34.8 % (39.0-53.0); HGB 11.5 gm/dL (13.0-17.5); Lymphocytes # (A) 1.1 k/uL (1.0-4.8); Lymphocytes % (A) 20 %; MCH 29.7 pg (25.0-35.0); MCHC 33.1 g/dL (31.0-37.0); MCV 89.6 fL (80.0-100.0); Mean Platelet Volume 8.2; Monocytes # (A) 0.4 k/uL (0-1.0); Monocytes % (A) 7 %; Neutrophils # (A) 4.1 k/uL (1.3-7.7); Neutrophils % (A) 71 %; Platelet Count 148 k/uL (150-450); RBC 3.88 m/uL (4.30-5.90); RDW 13.2 % (11.5-15.5); WBC 5.9 k/uL (3.8-10.6)
[2021-11-12 05:09] LABS: ALT 53 U/L (4-49); AST 69 U/L (17-59); African American GFR (CKD) >90 (>60 ml/min/1.73 sqM); Albumin 3.6 g/dL (3.5-5.0); Alkaline Phosphatase 63 U/L (38-126); Anion Gap 12 mmol/L; Blood Urea Nitrogen 16 mg/dL (9-20); Calcium 8.5 mg/dL (8.4-10.2); Carbon Dioxide 22 mmol/L (22-30); Chloride 103 mmol/L (98-107); Glucose 112 mg/dL (74-99); Non-African American GFR(CKD) >90 (>60 ml/min/1.73 sqM); Potassium 3.7 mmol/L (3.5-5.1); Sodium 137 mmol/L (137-145); Total Bilirubin 0.6 mg/dL (0.2-1.3); Total Protein 6.6 g/dL (6.3-8.2)
[2021-11-12] MEDS ORDERED: Potassium Replacement Protocol 1 EACH MISC MISCELLANE PRN (05:28)
[2021-11-12] MEDS: KETOROLAC 15 MG/ML 1 ML VIAL IVP PRN ×2 (05:37→10:19)
[2021-11-12] MEDS ORDERED: POTASSIUM CHLORIDE ER 20 MEQ TAB.ER PO SCH (06:00)
[2021-11-12] MEDS: SODIUM CHLORIDE 0.9% 1,000 ML IV SCH ×2 (06:02→20:46)
[2021-11-12 06:47] LABS: Glucose,Whole Blood 137 mg/dL (70-110)
--- NOTE | 2021-11-12 07:39 | XR ---
EXAMINATION TYPE: XR chest 1V portable DATE OF EXAM: 11/12/2021 5:38 AM COMPARISON: Chest radiographs from 11/11/2021, CT chest abdomen pelvis 11/11/2021. TECHNIQUE: XR chest 1V portable Frontal view of the chest. CLINICAL INDICATION:Male, 61 years old with history of pneumothorax; FINDINGS: Patient is rotated which limits evaluation. Lungs/Pleura: Small right apical pneumothorax appears similar. Small left pleural effusion suggested. No focal consolidation. Pulmonary vascularity: Unremarkable. Heart/mediastinum: Cardiomediastinal silhouette is unremarkable. Musculoskeletal: Redemonstration of comminuted right midshaft clavicular fracture. Additional known r ight-sided rib and scapular fractures are better appreciated on CT. IMPRESSION: 1. Similar small right apical pneumothorax. 2. Small left pleural effusion suggested. 3. Redemonstration of right comminuted mid shaft clavicle fracture. Additional known right-sided rib and scapular fractures are better appreciated on CT.
--- NOTE | 2021-11-12 08:10 | P.CNPUL ---
History of Present Illness Consult date: 11/11/21 Chief complaint: PTX History of present illness: 61-year-old male patient, fell off a roof landed on the right side. No loss of consciousness. No head trauma. The white cell count is at 7.8 and a hemoglobin of 14 and a platelet count of 210. Normal coagulation profile. No murmur renal function with a creatinine of 0.9. Sodium is at 144. Lactic acid level venous was 3.0. AST was 11 with an AST of 67, troponins are negative, UA showing +1 protein, 27 RBCs. Urine drug screen was positive for amphetamines and methamphetamines. Opiates is probably related to the medication that was given to him in the emergency or by EMS. Chest x-ray shows a small right-sided pneumothorax, apical in addition to a comminuted right clavicular fracture and a 1.7 cm calcified nodule in the right lung X-ray of the pelvis was negative Computed tomography scan of the head and neck showed no evidence of an acute intracranial process. Small right apical pneumothorax was again seen and the patient has no evidence of any cervical fracture and there was a comminuted fracture of the posterior right second rib and right clavicle and mild multilevel degenerative disc disease CAT scan of the chest abdomen and pelvis showed a small right apical pneum othorax and right posterolateral chest wall subcutaneous emphysema. Right lower lobe consolidation/atelectasis/contusion. Multiple fractures involving the right clavicle, right shoulder, second 78 and 11th rib on the right, L2, L3 and L4 transverse process fractures on the right, and a calcified right lower lobe pulmonary nodule and upper lobe pulmonary nodules and an indeterminate left adrenal nodule measuring 1.4 cm in size. Patient is currently on 100% on a beta facemask with a pulse ox of 98%. Afebrile. Hemodynamically stable. Review of Systems Constitutional: Denies chills, Denies fever Eyes: denies as per HPI, denies blurred vision, denies bulging eye, denies decreased vision, denies diplopia, denies discharge, denies dry eye, denies irritation, denies itching, denies pain, denies photophobia, denies loss of peripheral vision, denies loss of vision, denies tunnel vision/blind spots Ears: deny: decreased hearing, ear discharge, earache, tinnitus Ears, nose, mouth and throat: Reports as per HPI Breasts: absent: as per HPI, gynecomastia Cardiovascular: Reports chest pain Respiratory: Reports as per HPI Gastrointestinal: Reports as per HPI Genitourinary: Reports as per HPI Musculoskeletal: Reports as per HPI Musculoskeletal: absent: ankle pain, ankle stiffness, ankle swelling Integumentary: Reports as per HPI Neurological: Reports as per HPI Psychiatric: Reports as per HPI Endocrine: Reports as per HPI Hematologic/Lymphatic: Reports as per HPI Allergic/Immunologic: Reports as per HPI Past Medical History Past Medical History: Diabetes Mellitus, Liver Disease, Osteoarthritis (OA), Thyroid Disorder Additional Past Medical History / Comment(s): hx hepatitis C-tx 2010, on rx for sinus infection History of Any Multi-Drug Resistant Organisms: MRSA Date of last positivie culture/infection: 11/02/20 MDRO Source:: Maxillary Sinus-Right Past Surgical History: No Surgical Hx Reported Additional Past Surgical History / Comment(s): oral surgery Past Anesthesia/Blood Transfusion Reactions: No Reported Reaction Smoking Status: Former smoker - Past Family History Mother Family Medical History: No Reported History Medications and Allergies Home Medications Medication Instructions Recorded Confirmed Type Levothyroxine Sodium 100 mcg PO DAILY 07/04/18 11/11/21 History Naproxen 500 mg PO BID 10/31/20 11/11/21 History lisinopriL [Prinivil] 10 mg PO DAILY 10/31/20 11/11/21 History metFORMIN HCL [Glucophage] 500 mg PO DAILY 10/31/20 11/11/21 History Citalopram Hydrobromide [CeleXA] 20 mg PO DAILY 11/11/21 11/11/21 History Allergies Allergy/AdvReac Type Severity Reaction Status Date / Time No Known Allergies Allergy Verified 11/11/21 14:06 Physical Exam Vitals: Vital Signs Temp Pulse Resp BP Pulse Ox 11/11/21 13:50 100 21 113/51 98 11/11/21 12:35 98.5 F 116 H 20 130/88 98 Intake and Output 11/10/21 11/11/21 11/11/21 22:59 06:59 14:59 Other: Weight 95.254 kg General appearance: alert, in no apparent distress, the patient is currently in pain and the patient is 100% nonrebreather facemask Head exam: Present: atraumatic, normocephalic Eye exam: Present: normal appearance. Absent: scleral icterus, conjunctival injection Neck exam: Present: normal inspection, other (In cervical collar). Absent: tenderness, meningismus Respiratory exam: Present: normal lung sounds bilaterally, chest wall tenderness. Absent: wheezes, rales, rhonchi, no evidence of any flail chest Cardiovascular Exam: Present: regular rate, normal rhythm, normal heart sounds. Absent: systolic murmur, diastolic murmur, rubs, gallop GI/Abdominal exam: Present: soft. Absent: distended, tenderness, guarding, rebound, rigid, mass, pulsatile mass Extremities exam: Present: normal inspection, normal capillary refill. Absent: pedal edema, calf tenderness Back exam: Present: normal inspection. Absent: CVA tenderness (R), CVA tenderness (L), vertebral tenderness Neurological exam: Present: alert, oriented X3. Absent: motor sensory deficit Skin exam: Present: warm, dry, intact, normal color. Absent: rash Results - Laboratory Findings CBC and BMP: 11/11/21 12:26 11/11/21 12:26 PT/INR, D-dimer PT 11.1 sec (9.0-12.0) 11/11/21 12:26 INR 1.0 (<1.2) 11/11/21 12:26 Abnormal lab findings: Abnormal Labs 11/11/21 11/11/21 11/11/21 12:26 12:26 12:26 APTT 21.5 L Chloride 109 H Glucose 185 H Plasma Lactic Acid Nemesio AST 101 H ALT 67 H Total Protein 8.3 H Ur Specific [place] >1.050 H Urine Protein 1+ H Urine Blood Small H Urine RBC 27 H Urine Bacteria Few H Urine Mucus Rare H Urine Opiates Screen Detected H Ur Amphetamines Screen Detected H U Methamphetamines Scrn Detected H 11/11/21 12:26 APTT Chloride Glucose Plasma Lactic Acid [place]es[place] 3.0 H* AST ALT Total Protein Ur Specific [place] Urine Protein Urine Blood Urine RBC Urine Bacteria Urine Mucus Urine Opiates Screen Ur Amphetamines Screen U Methamphetamines Scrn - Diagnostic Findings Chest x-ray: image reviewed CT scan - chest: image reviewed Assessment and Plan Plan: Fall off the roof, accidental Small right-sided pneumothorax Small right-sided subcutaneous emphysema Limited right basilar atelectasis/contusion Right comminuted clavicular fracture Right scapular fracture Right-sided rib fractures involving the second, seventh, eighth and 11th rib Right transverse process fractures involving L2 L3 L4 Calcified pulmonary nodules Diabetes mellitus History of hepatitis C received treatment 2010 Osteoarthritis Hypertension Hypothyroidism Chronic anxiety/depression maintained on citalopram Plan Pain control with Dilaudid Incentive spirometer 100% nonrebreather facemask for now and weaned down slowly to maintain a saturation above 90% Repeat daily chest x-rays Monitor blood work Resume all medications including citalopram, levothyroxine and lisinopril and Glucophage Trauma surgery evaluation No need for chest tube insertion We'll continue to follow
[2021-11-12] MEDS ORDERED: ENOXAPARIN 40 MG/0.4 ML SYRINGE SQ SCH (09:00)
--- NOTE | 2021-11-12 10:10 | P.GSCN ---
History of Present Illness Consult date: 11/12/21 Reason for Consult: Acute right-sided pneumothorax, multiple rib fractures status post fall from roof. Requesting physician: London Fofana History of present illness: This is a 61-year-old gentleman who follows on an outpatient basis with Dr. Jane Honeycutt for his primary care service. His past medical history significant for hypertension, diabetes mellitus type 2, thyroid disorder, depression, sleep apnea without home CPAP use, history of hepatitis C which was treated in 2010, remote history of nicotine dependence quit smoking 38 years ago, daily EtOH use with one beer daily and remote history of IV drug abuse in which he reports he has been clean for 22 years. The patient presented to the emergency department here at [facility] yesterday 11/11/2021 via EMS status post fall from his roof landing on his right side. The patient reports he was working on his roof and was wearing a safety harness, slipped and fell with the safety harness breaking and subsequently falling approximately 25 feet landing on his right side. He reports he lost consciousness, did not lose bowel or bladder function and was able to get up with assistance from his son-in-law. He denies any fever, chills, nausea, vomiting, headache, visual disturbances, dizziness, palpitations, hematemesis, hemoptysis, chest pain, chest pressure, or shortness of breath. On presentation and x-ray was taken of his pelvis which showed no acute osseous pathology, a chest x-ray was completed which showed a small right apical pneumothorax, comminuted right clavicle fracture, and a 1.7 cm nodule in the right lung base. For further evaluation a computed tomography scan of his chest/abdomen/pelvis with contrast was completed which demonstrated a small right pneumothorax with trace right hemothorax and right posterior lat eral chest wall subcutaneous emphysema, right lower lobe consolidation which may represent atelectasis and/or contusion, multiple rib fractures involving the right clavicle, right shoulder, ribs 2, 7, 8, 10, and 11. It also demonstrated right L2 through L4 transverse process fractures, right lower lobe and lower lobe calcified nodes consistent with calcified granuloma/hematoma and intermediate left adrenal gland 1.4 cm nodule. A computed tomography scan of his brain was also completed which showed no acute intracranial process, small right apical pneumothorax as demonstrated on the chest x-ray, no evidence of cervical spine fracture, mild multilevel degenerative disc disease and comminuted fracture of the posterior right second rib and right clavicle. A 12- lead EKG was completed which showed sinus tachycardia with a heart rate of 101 BPM. This morning the patient is on 5 L of oxygen nasal cannula with oxygen saturation is 98%. Bedside telemetry showing normal sinus rhythm heart rate 86 BPM. The patient reports with laying still in bed he is rating his pain 2 out of 10 on the pain scale, although if he was to remove and get up he reports he would probably rate his pain 10 out of 10 on the pain scale. He is achieving 1500 mL on his incentive spirometry with encouragement. Subsequently, due to the findings of rib fractures and right-sided pneumothorax a consult was placed to Dr. Rob Tran from cardiothoracic surgery for further evaluation and treatment recommendations. Review of Systems A 14 point review of systems was completed and was negative except as mentioned in the HPI. Past Medical History Past Medical History: Diabetes Mellitus, Hypertension, Liver Disease, Osteoarthritis (OA), Thyroid Disorder Additional Past Medical History / Comment(s): hx hepatitis C-tx 2010, on rx for sinus infection History of Any Multi-Drug Resistant Organisms: MRSA Year Discovered:: 11/02/20 MDRO Source:: Maxillary Sinus-Right Past Surgical History: Tonsillectomy Additional Past Surgical History / Comment(s): oral surgery, history of sinus surgery Past Anesthesia/Blood Transfusion Reactions: No Reported Reaction Past Psychological History: Depression Smoking Status: Former smoker Past Alcohol Use History: Daily (Drinks 1 beer daily) Additional Drug Use History / Comment(s): History of IV drug abuse, has been clean for over 22 years - Past Family History Mother Family Medical History: Coronary Artery Disease (CAD), Diabetes Mellitus Additional Family Medical History / Comment(s): History of CABG, in her s. Father Family Medical History: Coronary Artery Disease (CAD), Diabetes Mellitus Additional Family Medical History / Comment(s): History of CABG, in his 90s Medications and Allergies Home Medications Medication Instructions Recorded Confirmed Type Levothyroxine Sodium 100 mcg PO DAILY 07/04/18 11/11/21 History Naproxen 500 mg PO BID 10/31/20 11/11/21 History lisinopriL [Prinivil] 10 mg PO DAILY 10/31/20 11/11/21 History metFORMIN HCL [Glucophage] 500 mg PO DAILY 10/31/20 11/11/21 History Citalopram Hydrobromide [CeleXA] 20 mg PO DAILY 11/11/21 11/11/21 History Allergies Allergy/AdvReac Type Severity Reaction Status Date / Time No Known Allergies Allergy Verified 11/11/21 20:16 Surgical - Exam Vital Signs Temp Pulse Resp BP Pulse Ox 98.5 F 114 H 30 H 140/94 96 11/11/21 12:18 11/11/21 12:18 11/11/21 12:18 11/11/21 12:18 11/11/21 12:18 - General Laying in bed in the intensive care unit, currently rates his pain 2 out of 10 on the pain scale. Cooperative, in no acute distress. well developed, well nourished, no distress, obese - Eyes PERRL, normal ocular movement, no pale, no icteric, no deviation - ENT normal pinna, normal nares, normal mucosa, no hearing loss, no congestion, poor assisted (To his lower teeth), dentures (Upper plate) - Neck Neck is supple, no lymphadenopathy. no masses, no bruits, trachea midline, no venous distension - Respiratory Lung sounds are essentially clear throughout, diminished to his bilateral bases right greater than left. No wheezes, rhonchi or crackles. Respirations are symmetrical and nonlabored. Oxygen saturation is 98% on 5 L nasal cannula. Achieving 1500 mL on his incentive spirometry with encouragement. - Cardiovascular Regular rhythm and rate. S1 and S2 present, negative for S3, gallop or murmur. Bedside telemetry showing normal sinus rhythm heart rate 86 BPM. No edema present. Peripheral pulses palpable. - Abdomen Abdomen is soft, nontender and nondistended. Active bowel sounds present all 4 abdominal quadrants. No guarding or rigidity. No organomegaly appreciated. - Genitourinary Deferred - Rectum Deferred - Integumentary Skin is warm and dry. No clubbing or cyanosis is present. no rash, no growths, no abnormal pigmentation, other (Multiple tattoos) - Neurologic No focal deficits. normal coordination, normal sensation - Musculoskeletal Bed rest at this time. Moves all 4 extremities. Limited range of motion to his right arm due to pain. - Psychiatric oriented to time, oriented to person, oriented to place, speech is normal, memory intact Results - Labs 11/12/21 04:34 11/12/21 04:34 Abnormal Lab Results - Last 24 Hours (Table) 11/11/21 11/11/21 11/11/21 Range/Units 12:26 12:26 12:26 RBC (4.30-5.90) m/uL Hgb (13.0-17.5) gm/dL Hct (39.0-53.0) % Plt Count (150-450) k/uL APTT 21.5 L (22.0-30.0) sec Chloride 109 H (98-107) mmol/L Glucose 185 H (74-99) mg/dL POC Glucose (mg/dL) (70-110) mg/dL Plasma Lactic Acid [place] (0.7-2.0) mmol/L AST 101 H (17-59) U/L ALT 67 H (4-49) U/L Total Protein 8.3 H (6.3-8.2) g/dL Ur Specific [place] >1.050 H (1.001-1.035) Urine Protein 1+ H (Negative) Urine Blood Small H (Negative) Urine RBC 27 H (0-5) /hpf Urine Bacteria Few H (None) /hpf Urine Mucus Rare H (None) /hpf Urine Opiates Screen Detected H (NotDetected) Ur Amphetamines Screen Detected H (NotDetected) U Methamphetamines Scrn Detected H (NotDetected) 11/11/21 11/11/21 11/11/21 Range/Units 12:26 15:37 15:54 RBC (4.30-5.90) m/uL Hgb (13.0-17.5) gm/dL Hct (39.0-53.0) % Plt Count (150-450) k/uL APTT (22.0-30.0) sec Chloride (98-107) mmol/L Glucose (74-99) mg/dL POC Glucose (mg/dL) 153 H (70-110) mg/dL Plasma Lactic Acid [place] 3.0 H* 3.3 H* (0.7-2.0) mmol/L AST (17-59) U/L ALT (4-49) U/L Total Protein (6.3-8.2) g/dL Ur Specific [place] (1.001-1.035) Urine Protein (Negative) Urine Blood (Negative) Urine RBC (0-5) /hpf Urine Bacteria (None) /hpf Urine Mucus (None) /hpf Urine Opiates Screen (NotDetected) Ur Amphetamines Screen (NotDetected) U Methamphetamines Scrn (NotDetected) 11/11/21 11/11/21 11/12/21 Range/Units 20:45 22:06 04:34 RBC 3.88 L (4.30-5.90) m/uL Hgb 11.5 L (13.0-17.5) gm/dL Hct 34.8 L (39.0-53.0) % Plt Count 148 L (150-450) k/uL APTT (22.0-30.0) sec Chloride (98-107) mmol/L Glucose (74-99) mg/dL POC Glucose (mg/dL) 153 H (70-110) mg/dL Plasma Lactic Acid [place] 2.7 H* (0.7-2.0) mmol/L AST (17-59) U/L ALT (4-49) U/L Total Protein (6.3-8.2) g/dL Ur Specific [place] (1.001-1.035) Urine Protein (Negative) Urine Blood (Negative) Urine RBC (0-5) /hpf Urine Bacteria (None) /hpf Urine Mucus (None) /hpf Urine Opiates Screen (NotDetected) Ur Amphetamines Screen (NotDetected) U Methamphetamines Scrn (NotDetected) 11/12/21 11/12/21 Range/Units 04:34 06:45 RBC (4.30-5.90) m/uL Hgb (13.0-17.5) gm/dL Hct (39.0-53.0) % Plt Count (150-450) k/uL APTT (22.0-30.0) sec Chloride (98-107) mmol/L Glucose 112 H (74-99) mg/dL POC Glucose (mg/dL) 137 H (70-110) mg/dL Plasma Lactic Acid [place] (0.7-2.0) mmol/L AST 69 H (17-59) U/L ALT 53 H (4-49) U/L Total Protein (6.3-8.2) g/dL Ur Specific [place] (1.001-1.035) Urine Protein (Negative) Urine Blood (Negative) Urine RBC (0-5) /hpf Urine Bacteria (None) /hpf Urine Mucus (None) /hpf Urine Opiates Screen (NotDetected) Ur Amphetamines Screen (NotDetected) U Methamphetamines Scrn (NotDetected) Diabetes panel 11/11/21 11/12/21 Range/Units 12: 04:34 Sodium 144 137 (137-145) mmol/L Potassium 4.1 3.7 (3.5-5.1) mmol/L Chloride 109 H 103 (98-107) mmol/L Carbon Dioxide 22 22 (22-30) mmol/L BUN 17 16 (9-20) mg/dL Creatinine 0.90 0.67 (0.66-1.25) mg/dL Glucose 185 H 112 H (74-99) mg/dL Calcium 9.4 8.5 (8.4-10.2) mg/dL AST 101 H 69 H (17-59) U/L ALT 67 H 53 H (4-49) U/L Alkaline Phosphatase 82 63 (38-126) U/L Total Protein 8.3 H 6.6 (6.3-8.2) g/dL Albumin 4.7 3.6 (3.5-5.0) g/dL Calcium panel 11/11/21 11/12/21 Range/Units 12:26 04:34 Calcium 9.4 8.5 (8.4-10.2) mg/dL Albumin 4.7 3.6 (3.5-5.0) g/dL Pituitary panel 11/11/21 11/12/21 Range/Units 12:26 04:34 Sodium 144 137 (137-145) mmol/L Potassium 4.1 3.7 (3.5-5.1) mmol/L Chloride 109 H 103 (98-107) mmol/L Carbon Dioxide 22 22 (22-30) mmol/L BUN 17 16 (9-20) mg/dL Creatinine 0.90 0.67 (0.66-1.25) mg/dL Glucose 185 H 112 H (74-99) mg/dL Calcium 9.4 8.5 (8.4-10.2) mg/dL Adrenal panel 11/11/21 11/12/21 Range/Units 12:26 04:34 Sodium 144 137 (137-145) mmol/L Potassium 4.1 3.7 (3.5-5.1) mmol/L Chloride 109 H 103 (98-107) mmol/L Carbon Dioxide 22 22 (22-30) mmol/L BUN 17 16 (9-20) mg/dL Creatinine 0.90 0.67 (0.66-1.25) mg/dL Glucose 185 H 112 H (74-99) mg/dL Calcium 9.4 8.5 (8.4-10.2) mg/dL Total Bilirubin 0.5 0.6 (0.2-1.3) mg/dL AST 101 H 69 H (17-59) U/L ALT 67 H 53 H (4-49) U/L Alkaline Phosphatase 82 63 (38-126) U/L Total Protein 8.3 H 6.6 (6.3-8.2) g/dL Albumin 4.7 3.6 (3.5-5.0) g/dL - Imaging Chest x-ray: report reviewed, image reviewed CT scan - abdomen: report reviewed, image reviewed CT scan - chest: report reviewed, image reviewed CT scan - pelvis: report reviewed, image reviewed US - abdomen: report reviewed, image reviewed EKG: image reviewed Assessment and Plan Assessment: 1. Small right-sided pneumothorax status post fall off a roof, accidental 2. Right-sided rib fractures involving the second, seventh, eighth, 10th and 11th ribs, secondary from fall off a roof 3. Right-sided subcutaneous emphysema 4. Limited right basilar atelectasis/contusion 5. Right comminuted clavicle fracture 6. Right scapular fracture 7. Right transverse process fractures involving L2, L3 and L4 8. Calcified pulmonary nodules on chest x-ray and computed tomography scan of the chest 9. History of hypertension 10. Diabetes mellitus type 2 11. History of hepatitis C treated in 2010 12. Hypothyroidism 13. History of depression, maintained on Celexa 14. Remote history of nicotine dependence, quit smoking 38 years ago 15. Daily EtOH use with 1 beer per day 16. Remote history of IV drug use, has been clean for over 22 years. Plan: The patient was seen and examined at his bedside in the intensive care unit today 11/12/2021. Discharge in diagnostics were reviewed. This case was discussed in detail with Dr. Rob Tran from cardiothoracic surgery. Chest x- ray this morning shows a similar small right apical pneumothorax. The patient denies any complaints of shortness of breath at this time and is currently on 5 L nasal cannula with oxygen saturations 98%. He is encouraged to continue to use his incentive spirometry 10 times every hour while awake. We will continue to monitor his right-sided pneumothorax with daily chest x-rays for pneumothorax resolution. No need for chest tube insertion at this time. Pain control per current when necessary orders. When cleared to get out of bed, out of bed for meals and increase activity as tolerated. No surgical intervention at this time for his right-sided rib fractures. Medical management and other comorbidities per primary care service and per trauma surgery recommendations. More recommendations to follow based on patient's clinical course. Thank you for this consult and we look forward to working with you in the care of this patient. I have personally seen and examined the patient, performed the documentation and the assessment and plan as written. 30 minutes spent on the visit . Bandar BATRES
[2021-11-12] MEDS: HEPARIN SODIUM,PORCINE/PF 5,000 UNIT/0.5 ML SYRINGE SQ SCH ×3 (10:19→23:27)
--- NOTE | 2021-11-12 11:30 | P.PN ---
Subjective Progress Note Date: 11/12/21 Principal diagnosis: Fall with fractures Patient says his pain is improved today. He was having issues with nausea and vomiting on the IV narcotics yesterday. It has resolved. Mild pain with deep inspiration. Certainly has discomfort with movement. Today's x-ray continues t o show a small apical pneumothorax which is stable. Labs noted. Objective - Vital Signs Vital signs: Vital Signs Temp 98.0 F 11/12/21 08:00 Pulse 78 11/12/21 10:00 Resp 13 11/12/21 10:00 BP 115/72 11/12/21 10:00 Pulse Ox 98 11/12/21 10:00 FiO2 Intake & Output 11/11/21 11/12/21 11/12/21 18:59 06:59 18:59 Intake Total 650 2000 500 Output Total 575 250 300 Balance 75 1750 200 Weight 90 kg 99.1 kg Intake: IV 300 1300 300 Sodium Chloride 0.9% 1, 300 1300 300 000 ml @ 75 mls/hr IV . [id number] [facility] Rx#:[id number] Oral 350 700 200 Output: Urine 175 250 300 Emesis 400 Other: Voiding Method Urinal Urinal ABP, PAP, CO, CI - Last Documented Arterial Blood Pressure 167/55 - Exam Chest: Right-sided chest tenderness, right arm in sling Abdomen: Soft, nontender, nondistended - Labs CBC & Chem 7: 11/12/21 04:34 11/12/21 04:34 Labs: Abnormal Lab Results - Last 24 Hours (Table) 11/11/21 11/11/21 11/11/21 Range/Units 12:26 12:26 12:26 RBC (4.30-5.90) m/uL Hgb (13.0-17.5) gm/dL Hct (39.0-53.0) % Plt Count (150-450) k/uL APTT 21.5 L (22.0-30.0) sec Chloride 109 H (98-107) mmol/L Glucose 185 H (74-99) mg/dL POC Glucose (mg/dL) (70-110) mg/dL Plasma Lactic Acid [place] (0.7-2.0) mmol/L AST 101 H (17-59) U/L ALT 67 H (4-49) U/L Total Protein 8.3 H (6.3-8.2) g/dL Ur Specific [place] >1.050 H (1.001-1.035) Urine Protein 1+ H (Negative) Urine Blood Small H (Negative) Urine RBC 27 H (0-5) /hpf Urine Bacteria Few H (None) /hpf Urine Mucus Rare H (None) /hpf Urine Opiates Screen Detected H (NotDetected) Ur Amphetamines Screen Detected H (NotDetected) U Methamphetamines Scrn Detected H (NotDetected) 11/11/21 11/11/21 11/11/21 Range/Units 12:26 15:37 15:54 RBC (4.30-5.90) m/uL Hgb (13.0-17.5) gm/dL Hct (39.0-53.0) % Plt Count (150-450) k/uL APTT (22.0-30.0) sec Chloride (98-107) mmol/L Glucose (74-99) mg/dL POC Glucose (mg/dL) 153 H (70-110) mg/dL Plasma Lactic Acid [place] 3.0 H* 3.3 H* (0.7-2.0) mmol/L AST (17-59) U/L ALT (4-49) U/L Total Protein (6.3-8.2) g/dL Ur Specific [place] (1.001-1.035) Urine Protein (Negative) Urine Blood (Negative) Urine RBC (0-5) /hpf Urine Bacteria (None) /hpf Urine Mucus (None) /hpf Urine Opiates Screen (NotDetected) Ur Amphetamines Screen (NotDetected) U Methamphetamines Scrn (NotDetected) 11/11/21 11/11/21 11/12/21 Range/Units 20:45 22:06 04:34 RBC 3.88 L (4.30-5.90) m/uL Hgb 11.5 L (13.0-17.5) gm/dL Hct 34.8 L (39.0-53.0) % Plt Count 148 L (150-450) k/uL APTT (22.0-30.0) sec Chloride (98-107) mmol/L Glucose (74-99) mg/dL POC Glucose (mg/dL) 153 H (70-110) mg/dL Plasma Lactic Acid [place] 2.7 H* (0.7-2.0) mmol/L AST (17-59) U/L ALT (4-49) U/L Total Protein (6.3-8.2) g/dL Ur Specific [place] (1.001-1.035) Urine Protein (Negative) Urine Blood (Negative) Urine RBC (0-5) /hpf Urine Bacteria (None) /hpf Urine Mucus (None) /hpf Urine Opiates Screen (NotDetected) Ur Amphetamines Screen (NotDetected) U Methamphetamines Scrn (NotDetected) 11/12/21 11/12/21 Range/Units 04:34 06:45 RBC (4.30-5.90) m/uL Hgb (13.0-17.5) gm/dL Hct (39.0-53.0) % Plt Count (150-450) k/uL APTT (22.0-30.0) sec Chloride (98-107) mmol/L Glucose 112 H (74-99) mg/dL POC Glucose (mg/dL) 137 H (70-110) mg/dL Plasma Lactic Acid [place] (0.7-2.0) mmol/L AST 69 H (17-59) U/L ALT 53 H (4-49) U/L Total Protein (6.3-8.2) g/dL Ur Specific [place] (1.001-1.035) Urine Protein (Negative) Urine Blood (Negative) Urine RBC (0-5) /hpf Urine Bacteria (None) /hpf Urine Mucus (None) /hpf Urine Opiates Screen (NotDetected) Ur Amphetamines Screen (NotDetected) U Methamphetamines Scrn (NotDetected) Assessment and Plan (1) Fall Narrative/Plan: Patient doing better today. Continue analgesics. Continue pulmonary toilet. Repeat chest x-ray and labs tomorrow. Await formal orthopedics consultation. Current Visit: Yes Status: Acute Code(s): W19.XXXA - UNSPECIFIED FALL, INITIAL ENCOUNTER SNOMED Code(s): 2517741
--- NOTE | 2021-11-12 11:38 | XR ---
EXAMINATION TYPE: XR chest 1V portable DATE OF EXAM: 11/12/2021 10:27 AM COMPARISON: Chest radiograph performed earlier today. TECHNIQUE: XR chest 1V portable Frontal view of the chest. CLINICAL INDICATION:Male, 61 years old with history of Reevaluate right sided pneumothorax; FINDINGS: Lungs/Pleura: No focal consolidation. Small right apical pneumothorax redemonstrated. Small left pleu ral effusion. Stable right lower lung 1.7 cm nodule which corresponded to a hamartoma/granuloma. Pulmonary vascularity: Unremarkable. Heart/mediastinum: Cardiomediastinal silhouette is unremarkable. Musculoskeletal: Redemonstration of comminuted right midshaft clavicular fracture. Additional known r ight-sided rib and scapular fractures are better appreciated on CT. IMPRESSION: 1. Small right apical pneumothorax is unchanged. 2. Small left pleural effusion. 3. Redemonstration of comminuted right midshaft clavicular fracture. Additional known right-sided ri b and scapular fractures are better appreciated on CT.
--- NOTE | 2021-11-12 11:39 | P.CNOR ---
History of Present Illness - HPI Consult date: 11/12/21 History of present illness: This patient is a 61-year-old male with past medical history of hypertension, diabetes, thyroid disorder that presented to [facility] emergency department yesterday following a fall. The patient states he was working on his roof and fell 25 feet onto his right side. On presentation to the emergency d [facility], right shoulder CT revealed comminuted fractures of the right scapula and right clavicle. CT of the chest abdomen pelvis revealed a small right pneumothorax, multiple right rib fractures, and right L2-L4 transverse process fractures. Patient was admitted to the ICU with a consult placed to orthopedic surgery for evaluation of his right scapula and clavicle fractures. Patient is examined bedside in the ICU this morning. He states his pain is well-controlled at this time. He localizes most of his pain to the right shoulder. He denies numbness or tingling of the right upper extremity. He denies back pain. He denies pain, numbness, tingling in his bilateral lower extremities. He overall is feeling well this morning. Vital signs stable. Past Medical History Past Medical History: Diabetes Mellitus, Hypertension, Liver Disease, Osteoar thritis (OA), Thyroid Disorder Additional Past Medical History / Comment(s): hx hepatitis C-tx 2010, on rx for sinus infection History of Any Multi-Drug Resistant Organisms: MRSA Year Discovered:: 11/02/20 MDRO Source:: Maxillary Sinus-Right Past Surgical History: Tonsillectomy Additional Past Surgical History / Comment(s): oral surgery, history of sinus surgery Past Anesthesia/Blood Transfusion Reactions: No Reported Reaction Past Psychological History: Depression Smoking Status: Former smoker Past Alcohol Use History: Daily (Drinks 1 beer daily) Additional Drug Use History / Comment(s): History of IV drug abuse, 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 Father Family Medical History: Coronary Artery Disease (CAD), Diabetes Mellitus Additional Family Medical History / Comment(s): History of CABG, in his 90s Medications and Allergies Home Medications Medication Instructions Recorded Confirmed Type Levothyroxine Sodium 100 mcg PO DAILY 07/04/18 11/11/21 History Naproxen 500 mg PO BID 10/31/20 11/11/21 History lisinopriL [Prinivil] 10 mg PO DAILY 10/31/20 11/11/21 History metFORMIN HCL [Glucophage] 500 mg PO DAILY 10/31/20 11/11/21 History Citalopram Hydrobromide [CeleXA] 20 mg PO DAILY 11/11/21 11/11/21 History Allergies Allergy/AdvReac Type Severity Reaction Status Date / Time No Known Allergies Allergy Verified 11/11/21 20:16 Physical Examination On examination, the patient is sitting up in bed in no apparent distress. He is alert and oriented 3. His head appears normocephalic and atraumatic. His breathing appears nonlabored. On inspection of his left upper extremity, no obvious deformities or signs of trauma. On inspection of his bilateral lower extremities, no obvious deformities or signs of trauma. Motor and sensory function is intact of the bilateral lower extremities. No pain with passive woznk-ru-qaupjh of the bilateral hips. On inspection of his right shoulder and right upper extremity, there are no open wounds, lacerations. Skin is intact. There is mild swelling about the right shoulder. There is diffuse pain on palpation of the shoulder, clavicle. No pain on palpation of the C-spine. No pain on palpation of the right elbow, forearm, wrist, hand. Qvnbk-yq-hnlknp of the right shoulder is not tested. No pain with passive ijter-ua-jfheaz of the right elbow, wrist. Motor and sensory function is intact of the right upper extremity. Radial pulse easily palpable, right upper extremity warm and well-perfused with brisk capillary refill of all fingers. Results CT right shoulder 11/11/21: Mildly displaced fracture of the right scapular body. Comminuted displaced fracture of the right clavicle. - Labs Labs: Abnormal Lab Results - Last 24 Hours (Table) 11/11/21 11/11/21 11/11/21 Range/Units 12:26 12:26 12:26 RBC (4.30-5.90) m/uL Hgb (13.0-17.5) gm/dL Hct (39.0-53.0) % Plt Count (150-450) k/uL APTT 21.5 L (22.0-30.0) sec Chloride 109 H (98-107) mmol/L Glucose 185 H (74-99) mg/dL POC Glucose (mg/dL) (70-110) mg/dL Plasma Lactic Acid [place] (0.7-2.0) mmol/L AST 101 H (17-59) U/L ALT 67 H (4-49) U/L Total Protein 8.3 H (6.3-8.2) g/dL Ur Specific [place] >1.050 H (1.001-1.035) Urine Protein 1+ H (Negative) Urine Blood Small H (Negative) Urine RBC 27 H (0-5) /hpf Urine Bacteria Few H (None) /hpf Urine Mucus Rare H (None) /hpf Urine Opiates Screen Detected H (NotDetected) Ur Amphetamines Screen Detected H (NotDetected) U Methamphetamines Scrn Detected H (NotDetected) 11/11/21 11/11/21 11/11/21 Range/Units 12:26 15:37 15:54 RBC (4.30-5.90) m/uL Hgb (13.0-17.5) gm/dL Hct (39.0-53.0) % Plt Count (150-450) k/uL APTT (22.0-30.0) sec Chloride (98-107) mmol/L Glucose (74-99) mg/dL POC Glucose (mg/dL) 153 H (70-110) mg/dL Plasma Lactic Acid [place] 3.0 H* 3.3 H* (0.7-2.0) mmol/L AST (17-59) U/L ALT (4-49) U/L Total Protein (6.3-8.2) g/dL Ur Specific [place] (1.001-1.035) Urine Protein (Negative) Urine Blood (Negative) Urine RBC (0-5) /hpf Urine Bacteria (None) /hpf Urine Mucus (None) /hpf Urine Opiates Screen (NotDetected) Ur Amphetamines Screen (NotDetected) U Methamphetamines Scrn (NotDetected) 11/11/21 11/11/21 11/12/21 Range/Units 20:45 22:06 04:34 RBC 3.88 L (4.30-5.90) m/uL Hgb 11.5 L (13.0-17.5) gm/dL Hct 34.8 L (39.0-53.0) % Plt Count 148 L (150-450) k/uL APTT (22.0-30.0) sec Chloride (98-107) mmol/L Glucose (74-99) mg/dL POC Glucose (mg/dL) 153 H (70-110) mg/dL Plasma Lactic Acid [place] 2.7 H* (0.7-2.0) mmol/L AST (17-59) U/L ALT (4-49) U/L Total Protein (6.3-8.2) g/dL Ur Specific [place] (1.001-1.035) Urine Protein (Negative) Urine Blood (Negative) Urine RBC (0-5) /hpf Urine Bacteria (None) /hpf Urine Mucus (None) /hpf Urine Opiates Screen (NotDetected) Ur Amphetamines Screen (NotDetected) U Methamphetamines Scrn (NotDetected) 11/12/21 11/12/21 Range/Units 04:34 06:45 RBC (4.30-5.90) m/uL Hgb (13.0-17.5) gm/dL Hct (39.0-53.0) % Plt Count (150-450) k/uL APTT (22.0-30.0) sec Chloride (98-107) mmol/L Glucose 112 H (74-99) mg/dL POC Glucose (mg/dL) 137 H (70-110) mg/dL Plasma Lactic Acid [place] (0.7-2.0) mmol/L AST 69 H (17-59) U/L ALT 53 H (4-49) U/L Total Protein (6.3-8.2) g/dL Ur Specific [place] (1.001-1.035) Urine Protein (Negative) Urine Blood (Negative) Urine RBC (0-5) /hpf Urine Bacteria (None) /hpf Urine Mucus (None) /hpf Urine Opiates Screen (NotDetected) Ur Amphetamines Screen (NotDetected) U Methamphetamines Scrn (NotDetected) H & H 11/11/21 11/12/21 Range/Units 12:26 04:34 Hgb 14.1 11.5 L (13.0-17.5) gm/dL Hct 44.1 34.8 L (39.0-53.0) % Coagulation 11/11/21 Range/Units 12:26 INR 1.0 (<1.2) Result Diagrams: 11/12/21 04:34 11/12/21 04:34 Assessment and Plan Assessment: Right scapular body fracture Right comminuted clavicle fracture Plan: - Clinical and imaging findings were discussed with the patient. The patient was discussed with Dr. Allison. No surgical intervention is recommended at this time. Recommended immobilization of the right upper extremity in a sling. He should remain nonweightbearing on the right upper extremity and perform no mwhjc-zt-wkpqjx of the right shoulder at this time. He may perform gentle yeccq-at-fmtjcw of the right wrist and hand as tolerated. - Pain management as needed. Ice to right shoulder for pain and swelling control. - He will need follow-up in one week for repeat x-rays of the right shoulder. We will follow patient as he remains inpatient.
[2021-11-12 11:44] LABS: Glucose,Whole Blood 99 mg/dL (70-110)
--- NOTE | 2021-11-12 11:45 | P.PN ---
Subjective Progress Note Date: 11/12/21 11/12/2021, the patient's pain is under better control. The chest x-ray showing a stable right apical pneumothorax and this was confirmed on 2 separate chest x- rays today. The subcutaneous emphysema over the anterior chest area is improved. The patient is hemodynamically stable and the patient is currently taking combination of Ultram and Toradol for pain control. Dilaudid made her nauseous and is not using the Dilaudid for now. Meanwhile, his condition remains stable. Hemodynamically stable. On the incentive spirometer, is pulling approximately 1500 and the patient is currently on 5 L about 2 by nasal cannula and was taken off the 100% nonrebreather facemask. He is currently awake and alert and following commands. No altered mentation. No nausea or vomiting. Objective - Vital Signs Vital signs: Vital Signs Temp 98.0 F 11/12/21 08:00 Pulse 78 11/12/21 10:00 Resp 13 11/12/21 10:00 BP 115/72 11/12/21 10:00 Pulse Ox 98 11/12/21 10:00 FiO2 Intake & Output 11/11/21 11/12/21 11/12/21 18:59 06:59 18:59 Intake Total 650 2000 500 Output Total 575 250 300 Balance 75 1750 200 Weight 90 kg 99.1 kg Intake: IV 300 1300 300 Sodium Chloride 0.9% 1, 300 1300 300 000 ml @ 75 mls/hr IV . [id number] [facility] Rx#:[id number] Oral 350 700 200 Output: Urine 175 250 300 Emesis 400 Other: Voiding Method Urinal Urinal ABP, PAP, CO, CI - Last Documented Arterial Blood Pressure 167/55 - Exam - General Laying in bed in the intensive care unit, currently rates his pain 2 out of 10 on the pain scale. Cooperative, in no acute distress. well developed, well nourished, no distress, obese - Eyes PERRL, normal ocular movement, no pale, no icteric, no deviation - ENT normal pinna, normal nares, normal mucosa, no hearing loss, no congestion, poor [facility] (To his lower teeth), dentures (Upper plate) - Neck Neck is supple, no lymphadenopathy. no masses, no bruits, trachea midline, no venous distension - Respiratory Lung sounds are essentially clear throughout, diminished to his bilateral bases right greater than left. No wheezes, rhonchi or crackles. Respirations are symmetrical and nonlabored. Oxygen saturation is 98% on 5 L nasal cannula. Achieving 1500 mL on his incentive spirometry with encouragement. - Cardiovascular Regular rhythm and rate. S1 and S2 present, negative for S3, gallop or murmur. Bedside telemetry showing normal sinus rhythm heart rate 86 BPM. No edema present. Peripheral pulses palpable. - Abdomen Abdomen is soft, nontender and nondistended. Active bowel sounds present all 4 abdominal quadrants. No guarding or rigidity. No organomegaly appreciated. - Genitourinary Deferred - Rectum Deferred - Integumentary Skin is warm and dry. No clubbing or cyanosis is present. no rash, no growths, no abnormal pigmentation, other (Multiple tattoos) - Neurologic No focal deficits. normal coordination, normal sensation - Musculoskeletal Bed rest at this time. Moves all 4 extremities. Limited range of motion to his right arm due to pain. - Psychiatric oriented to time, oriented to person, oriented to place, speech is normal, memory intact - Labs CBC & Chem 7: 11/12/21 04:34 11/12/21 04:34 Labs: Abnormal Lab Results - Last 24 Hours (Table) 11/11/21 11/11/21 11/11/21 Range/Units 12:26 12:26 12:26 RBC (4.30-5.90) m/uL Hgb (13.0-17.5) gm/dL Hct (39.0-53.0) % Plt Count (150-450) k/uL APTT 21.5 L (22.0-30.0) sec Chloride 109 H (98-107) mmol/L Glucose 185 H (74-99) mg/dL POC Glucose (mg/dL) (70-110) mg/dL Plasma Lactic Acid [place] (0.7-2.0) mmol/L AST 101 H (17-59) U/L ALT 67 H (4-49) U/L Total Protein 8.3 H (6.3-8.2) g/dL Ur Specific [place] >1.050 H (1.001-1.035) Urine Protein 1+ H (Negative) Urine Blood Small H (Negative) Urine RBC 27 H (0-5) /hpf Urine Bacteria Few H (None) /hpf Urine Mucus Rare H (None) /hpf Urine Opiates Screen Detected H (NotDetected) Ur Amphetamines Screen Detected H (NotDetected) U Methamphetamines Scrn Detected H (NotDetected) 11/11/21 11/11/21 11/11/21 Range/Units 12:26 15:37 15:54 RBC (4.30-5.90) m/uL Hgb (13.0-17.5) gm/dL Hct (39.0-53.0) % Plt Count (150-450) k/uL APTT (22.0-30.0) sec Chloride (98-107) mmol/L Glucose (74-99) mg/dL POC Glucose (mg/dL) 153 H (70-110) mg/dL Plasma Lactic Acid [place] 3.0 H* 3.3 H* (0.7-2.0) mmol/L AST (17-59) U/L ALT (4-49) U/L Total Protein (6.3-8.2) g/dL Ur Specific [place] (1.001-1.035) Urine Protein (Negative) Urine Blood (Negative) Urine RBC (0-5) /hpf Urine Bacteria (None) /hpf Urine Mucus (None) /hpf Urine Opiates Screen (NotDetected) Ur Amphetamines Screen (NotDetected) U Methamphetamines Scrn (NotDetected) 11/11/21 11/11/21 11/12/21 Range/Units 20:45 22:06 04:34 RBC 3.88 L (4.30-5.90) m/uL Hgb 11.5 L (13.0-17.5) gm/dL Hct 34.8 L (39.0-53.0) % Plt Count 148 L (150-450) k/uL APTT (22.0-30.0) sec Chloride (98-107) mmol/L Glucose (74-99) mg/dL POC Glucose (mg/dL) 153 H (70-110) mg/dL Plasma Lactic Acid [place] 2.7 H* (0.7-2.0) mmol/L AST (17-59) U/L ALT (4-49) U/L Total Protein (6.3-8.2) g/dL Ur Specific [place] (1.001-1.035) Urine Protein (Negative) Urine Blood (Negative) Urine RBC (0-5) /hpf Urine Bacteria (None) /hpf Urine Mucus (None) /hpf Urine Opiates Screen (NotDetected) Ur Amphetamines Screen (NotDetected) U Methamphetamines Scrn (NotDetected) 11/12/21 11/12/21 Range/Units 04:34 06:45 RBC (4.30-5.90) m/uL Hgb (13.0-17.5) gm/dL Hct (39.0-53.0) % Plt Count (150-450) k/uL APTT (22.0-30.0) sec Chloride (98-107) mmol/L Glucose 112 H (74-99) mg/dL POC Glucose (mg/dL) 137 H (70-110) mg/dL Plasma Lactic Acid [place] (0.7-2.0) mmol/L AST 69 H (17-59) U/L ALT 53 H (4-49) U/L Total Protein (6.3-8.2) g/dL Ur Specific [place] (1.001-1.035) Urine Protein (Negative) Urine Blood (Negative) Urine RBC (0-5) /hpf Urine Bacteria (None) /hpf Urine Mucus (None) /hpf Urine Opiates Screen (NotDetected) Ur Amphetamines Screen (NotDetected) U Methamphetamines Scrn (NotDetected) Assessment and Plan Plan: Fall off the roof, accidental Small right-sided pneumothorax, stable on today's chest x-ray probably in the order of 5-10% Small right-sided subcutaneous emphysema, clinically improving Right-sided chest wall pain, pain is under better control for now Limited right basilar atelectasis/contusion Right comminuted clavicular fracture Right scapular fracture Right-sided rib fractures involving the second, seventh, eighth and 11th rib Right transverse process fractures involving L2 L3 L4 Calcified pulmonary nodules Diabetes mellitus History of hepatitis C received treatment 2010 Osteoarthritis Hypertension Hypothyroidism Chronic anxiety/depression maintained on citalopram Plan Pain control with Toradol and Ultram Incentive spirometer 5 L of O2 nasal cannula Repeat daily chest x-rays Monitor blood work Trauma surgery evaluation was completed No need for chest tube insertion We'll continue to follow
[2021-11-12] MEDS: INSULIN ASPART (NovoLOG) 100 UNIT/ML VIAL SQ SCH ×3 (12:16→20:45)
[2021-11-12] MEDS: ACETAMINOPHEN TAB 325 MG TAB PO PRN (12:17)
--- NOTE | 2021-11-12 13:11 | P.HPIM ---
History of Present Illness 61-year-old male fell off two floors roof. Patient found to have right clavicle fracture right scapular fracture small right apical pneumothorax comminuted fracture of right posterior second rib, multilevel degenerative disc disease fractures of L1 and L3-L4 transverse process. Patient also has a calculated lung nodule which is an incidental finding on the multiple CTs patient's pain is fairly well controlled patient denied any fever chills patient the denied any syncopal episode episode. Urine drug screen is positive for amphetamines. REVIEW OF SYSTEMS: CONSTITUTIONAL: No fever, no malaise, no fatigue. HEENT: No recent visual problems or hearing problems. Denied any sore throat. CARDIOVASCULAR: No chest pain, orthopnea, PND, no palpitations, no syncope. PULMONARY: No shortness of breath, no cough, no hemoptysis. GASTROINTESTINAL: No diarrhea, no nausea, no vomiting, no abdominal pain. NEUROLOGICAL: No headaches, no weakness, no numbness. HEMATOLOGICAL: Denies any bleeding or petechiae. GENITOURINARY: Denies any burning micturition, frequency, or urgency. MUSCULOSKELETAL/RHEUMATOLOGICAL: Pain in the fracture sites ENDOCRINE: Denies any polyuria or polydipsia. The rest of the 14-point review of systems is negative. PHYSICAL EXAMINATION: GENERAL: The patient is alert and oriented x3, not in any acute distress. Well developed, well nourished. HEENT: Pupils are round and equally reacting to light. EOMI. No scleral icterus. No conjunctival pallor. Normocephalic, atraumatic. No pharyngeal erythema. No thyromegaly. CARDIOVASCULAR: S1 and S2 present. No murmurs, rubs, or gallops. PULMONARY: Chest is clear to auscultation, no wheezing or crackles. ABDOMEN: Soft, nontender, nondistended, normoactive bowel sounds. No palpable organomegaly. MUSCULOSKELETAL: As mentioned above EXTREMITIES: No cyanosis, clubbing, or pedal edema. NEUROLOGICAL: Gross neurological examination did not reveal any focal deficits. SKIN: No rashes. Assessment and plan Fall, trauma: Arthritic surgery and surgery evaluated the patient patient has a sling for right clavicle fracture conservative management and pain management for scapular, vertebral and fractures clinical monitoring for pneumothorax -Diabetes mellitus patient was started on sliding scale insulin hold off on by mouth medications -Hypertension patient is been become hypotensive side holding off on his lisinopril -Hypothyroidism continue with levothyroxine Depression continue citalopram DVT prophylaxis: On subcutaneous heparin Past Medical History Past Medical History: Diabetes Mellitus, Hypertension, Liver Disease, Osteoarthritis (OA), Thyroid Disorder Additional Past Medical History / Comment(s): hx hepatitis C-tx 2010, on rx for sinus infection History of Any Multi-Drug Resistant Organisms: MRSA Date of last positivie culture/infection: 11/02/20 MDRO Source:: Maxillary Sinus-Right Past Surgical History: Tonsillectomy Additional Past Surgical History / Comment(s): oral surgery, history of sinus surgery Past Anesthesia/Blood Transfusion Reactions: No Reported Reaction Past Psychological History: Depression Smoking Status: Former smoker Past Alcohol Use History: Daily (Drinks 1 beer daily) Additional Drug Use History / Comment(s): History of IV drug abuse, 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 Father Family Medical History: Coronary Artery Disease (CAD), Diabetes Mellitus Additional Family Medical History / Comment(s): History of CABG, in his 90s Medications and Allergies Home Medications Medication Instructions Recorded Confirmed Type Levothyroxine Sodium 100 mcg PO DAILY 07/04/18 11/11/21 History Naproxen 500 mg PO BID 10/31/20 11/11/21 History lisinopriL [Prinivil] 10 mg PO DAILY 10/31/20 11/11/21 History metFORMIN HCL [Glucophage] 500 mg PO DAILY 10/31/20 11/11/21 History Citalopram Hydrobromide [CeleXA] 20 mg PO DAILY 11/11/21 11/11/21 History Allergies Allergy/AdvReac Type Severity Reaction Status Date / Time No Known Allergies Allergy Verified 11/11/21 20:16 Physical Exam Vitals: Vital Signs Temp Pulse Resp BP Pulse Ox 11/12/21 11:00 81 14 111/66 98 11/12/21 10:00 78 13 115/72 98 11/12/21 09:00 84 12 103/56 98 11/12/21 08:00 98.0 F 85 16 112/63 98 11/12/21 07:00 88 23 107/61 97 11/12/21 06:00 85 20 115/69 99 11/12/21 05:00 86 16 111/68 98 11/12/21 04:00 90 19 100/66 98 11/12/21 03:00 92 17 133/81 98 11/12/21 02:00 87 20 125/73 99 11/12/21 01:00 89 16 123/79 99 11/12/21 00:00 97.7 F 92 16 127/97 100 11/11/21 23:00 89 17 122/72 98 11/11/21 22:00 89 14 118/88 99 11/11/21 21:00 90 19 126/52 97 11/11/21 20:00 97.1 F L 93 33 H 135/83 98 11/11/21 19:30 87 15 135/83 96 11/11/21 19:00 88 14 130/82 96 11/11/21 18:30 89 27 H 97 11/11/21 18:00 85 19 118/70 97 11/11/21 17:30 92 12 97 11/11/21 17:00 90 24 144/70 93 L 11/11/21 16:30 99 19 93 L 11/11/21 16:00 97.6 F 98 16 131/78 98 11/11/21 15:37 22 11/11/21 14:53 103 H 24 116/70 99 11/11/21 13:50 100 21 113/51 98 Intake and Output 11/11/21 11/12/21 11/12/21 22:59 06:59 14:59 Intake Total 1750 900 500 Output Total 825 0 300 Balance 925 900 200 Intake: IV 700 900 300 Sodium Chloride 0.9% 1, 700 900 300 000 ml @ 75 mls/hr IV . [id number] [facility] Rx#:[id number] Oral 1050 200 Output: Urine 425 0 300 Emesis 400 Other: Voiding Method Urinal Urinal Urinal Weight 90 kg 99.1 kg Results CBC & Chem 7: 11/12/21 04:34 11/12/21 04:34 Labs: Abnormal Lab Results - Last 24 Hours (Table) 11/11/21 11/11/21 11/11/21 Range/Units 12:26 12:26 15:37 RBC (4.30-5.90) m/uL Hgb (13.0-17.5) gm/dL Hct (39.0-53.0) % Plt Count (150-450) k/uL APTT 21.5 L (22.0-30.0) sec Glucose (74-99) mg/dL POC Glucose (mg/dL) 153 H (70-110) mg/dL Plasma Lactic Acid [place] (0.7-2.0) mmol/L AST (17-59) U/L ALT (4-49) U/L Ur Specific [place] >1.050 H (1.001-1.035) Urine Protein 1+ H (Negative) Urine Blood Small H (Negative) Urine RBC 27 H (0-5) /hpf Urine Bacteria Few H (None) /hpf Urine Mucus Rare H (None) /hpf Urine Opiates Screen Detected H (NotDetected) Ur Amphetamines Screen Detected H (NotDetected) U Methamphetamines Scrn Detected H (NotDetected) 11/11/21 11/11/21 11/11/21 Range/Units 15:54 20:45 22:06 RBC (4.30-5.90) m/uL Hgb (13.0-17.5) gm/dL Hct (39.0-53.0) % Plt Count (150-450) k/uL APTT (22.0-30.0) sec Glucose (74-99) mg/dL POC Glucose (mg/dL) 153 H (70-110) mg/dL Plasma Lactic Acid [place] 3.3 H* 2.7 H* (0.7-2.0) mmol/L AST (17-59) U/L ALT (4-49) U/L Ur Specific [place] (1.001-1.035) Urine Protein (Negative) Urine Blood (Negative) Urine RBC (0-5) /hpf Urine Bacteria (None) /hpf Urine Mucus (None) /hpf Urine Opiates Screen (NotDetected) Ur Amphetamines Screen (NotDetected) U Methamphetamines Scrn (NotDetected) 11/12/21 11/12/21 11/12/21 Range/Units 04:34 04:34 06:45 RBC 3.88 L (4.30-5.90) m/uL Hgb 11.5 L (13.0-17.5) gm/dL Hct 34.8 L (39.0-53.0) % Plt Count 148 L (150-450) k/uL APTT (22.0-30.0) sec Glucose 112 H (74-99) mg/dL POC Glucose (mg/dL) 137 H (70-110) mg/dL Plasma Lactic Acid [place] (0.7-2.0) mmol/L AST 69 H (17-59) U/L ALT 53 H (4-49) U/L Ur Specific [place] (1.001-1.035) Urine Protein (Negative) Urine Blood (Negative) Urine RBC (0-5) /hpf Urine Bacteria (None) /hpf Urine Mucus (None) /hpf Urine Opiates Screen (NotDetected) Ur Amphetamines Screen (NotDetected) U Methamphetamines Scrn (NotDetected) Thrombosis Risk Factor Assmnt - Choose All That Apply Any of the Below Risk Factors Present?: Yes Each Factor Represents 1 point: Age 41-60 years, Medical pt on bed rest Each Risk Factor Represents 2 Points: Patient confined to bed Thrombosis Risk Factor Assessment Total Risk Factor Score: 4 Thrombosis Risk Factor Assessment Level: Moderate Risk
[2021-11-12] MEDS: HYDROmorphone 1 MG/ML 1 ML SYRINGE IVP PRN ×3 (14:03→19:37)
[2021-11-12] MEDS: ONDANSETRON 4 MG/2 ML VIAL IVP PRN ×2 (14:12→19:37)
[2021-11-12] MEDS ORDERED: SODIUM CHLORIDE 0.65% NASAL SPRAY 44 ML BTL NASAL PRN (14:36)
[2021-11-12 16:23] LABS: Glucose,Whole Blood 110 mg/dL (70-110)
[2021-11-12 19:48] LABS: Glucose,Whole Blood 101 mg/dL (70-110)
[2021-11-13] MEDS: KETOROLAC 15 MG/ML 1 ML VIAL IVP PRN ×2 (01:47→08:11)
[2021-11-13] MEDS: traMADol 50 MG TAB PO PRN (05:35)
[2021-11-13 05:56] LABS: Basophils % (A) 0 %; Eosinophils # (A) 0.1 k/uL (0-0.7); Eosinophils % (A) 3 %; HCT 34.5 % (39.0-53.0); HGB 11.5 gm/dL (13.0-17.5); Lymphocytes # (A) 1.5 k/uL (1.0-4.8); Lymphocytes % (A) 33 %; MCH 30.2 pg (25.0-35.0); MCHC 33.4 g/dL (31.0-37.0); MCV 90.5 fL (80.0-100.0); Mean Platelet Volume 8.8; Monocytes # (A) 0.3 k/uL (0-1.0); Monocytes % (A) 6 %; Neutrophils # (A) 2.5 k/uL (1.3-7.7); Neutrophils % (A) 55 %; Platelet Count 131 k/uL (150-450); RBC 3.81 m/uL (4.30-5.90); RDW 13.3 % (11.5-15.5); WBC 4.4 k/uL (3.8-10.6)
[2021-11-13] MEDS: LEVOTHYROXINE 100 MCG TAB PO SCH (06:11)
[2021-11-13] MEDS: SODIUM CHLORIDE 0.9% 1,000 ML IV SCH (06:18)
[2021-11-13 06:20] LABS: Glucose,Whole Blood 109 mg/dL (70-110)
[2021-11-13 06:22] LABS: African American GFR (CKD) >90 (>60 ml/min/1.73 sqM); Anion Gap 9 mmol/L; Blood Urea Nitrogen 13 mg/dL (9-20); Calcium 8.4 mg/dL (8.4-10.2); Carbon Dioxide 23 mmol/L (22-30); Chloride 105 mmol/L (98-107); Glucose 106 mg/dL (74-99); Non-African American GFR(CKD) >90 (>60 ml/min/1.73 sqM); Potassium 4.3 mmol/L (3.5-5.1); Sodium 137 mmol/L (137-145)
[2021-11-13] MEDS: INSULIN ASPART (NovoLOG) 100 UNIT/ML VIAL SQ SCH ×4 (06:30→20:37)
[2021-11-13] MEDS: ACETAMINOPHEN TAB 325 MG TAB PO PRN (07:05)
--- NOTE | 2021-11-13 07:09 | XR ---
EXAMINATION TYPE: XR chest 1V portable DATE OF EXAM: 11/13/2021 6:01 AM COMPARISON: Chest radiographs from 11/12/2021 TECHNIQUE: XR chest 1V portable Frontal view of the chest. CLINICAL INDICATION:Male, 61 years old with history of Right-sided pneumothorax with multiple rib fra cture; FINDINGS: Lungs/Pleura: No focal consolidation. Small right apical pneumothorax is marginally decreased in size . Small left pleural effusion with atelectasis. Stable right lower lung 1.7 cm nodule which correspon ded to a hamartoma/granuloma. Pulmonary vascularity: Unremarkable. Heart/mediastinum: Cardiomediastinal silhouette is unremarkable. Musculoskeletal: Mildly displaced se venth and eighth right rib fractures identified. IMPRESSION: 1. Marginal decrease in small right apical pneumothorax. 2. Small left pleural effusion with atelectasis. 3. Mildly displaced seventh and eighth right rib fractures.
--- NOTE | 2021-11-13 07:33 | P.PN ---
Subjective Progress Note Date: 11/13/21 Principal diagnosis: Acute right-sided pneumothorax, multiple right-sided rib fractures, Right comminuted clavicle fracture, Right scapular fracture, Right transverse process fractures involving L2, L3 and L4, status post fall from roof. Past medical history significant for hypertension, diabetes mellitus type 2, hypothyroidism, depression, sleep apnea without home CPAP use, history of hepatitis C which was treated in 2010, remote history of nicotine dependence quit smoking 38 years ago, daily EtOH use with one beer daily and remote history of IV drug abuse in which he reports he has been clean for 22 years. The patient was seen and examined in follow-up today 11/13/2021 at his bedside in the intensive care unit. He remains on bed rest, is awake, alert, oriented 3 and is in no acute apparent distress. Denies any complaints of shortness of breath at this time although continues to complain of some pain to his back and right chest with taking deep breaths. Currently he said his pain is well controlled on his current pain medication regimen and is rating his pain 4 out of 10 on the pain scale at this time. Oxygen saturation are 96% on 5 L nasal cannula and he is achieving 1500 mL on his incentive spirometry with encouragement. Chest x-ray this morning shows a slight decrease in the small right apical pneumothorax, a small left pleural effusion with atelectasis and mildly displaced seventh and eighth right rib fractures. Bedside telemetry is showing normal sinus rhythm heart rate 75 BPM. He remains hemodynamically stable and is currently on no inotropic pressor support. According to the patient he is waiting to be fitted for a back brace to be placed prior to getting out of bed. He has a sling in place to his right arm. Laboratory results this morning show a WBC count of 4.4, hemoglobin 11.5, hematocrit 34.5, platelets 131, sodium 137, potassium 4.3, BUN 13, creatinine 0.65, glucose 106 and calcium 8.4. He has been afebrile and in the last 24 hours. Objective - Vital Signs Vital signs: Vital Signs Temp 96.5 F L 11/13/21 04:00 Pulse 80 11/13/21 07:00 Resp 12 11/13/21 07:00 BP 101/60 11/13/21 07:00 Pulse Ox 95 11/13/21 07:00 FiO2 Intake & Output 11/12/21 11/13/2111/13/22 18:59 06:59 18:59 Intake Total 1850 1000 Output Total 300 1125 Balance 1550 -125 Weight 97.7 kg Intake: IV 1100 1000 Sodium Chloride 0.9% 1, 1100 1000 000 ml @ 75 mls/hr IV . [id number] [facility] Rx#:[id number] Oral 750 Output: Urine 300 1125 Other: Voiding Method Urinal Urinal ABP, PAP, CO, CI - Last Documented Arterial Blood Pressure 167/55 - Exam CONSTITUTIONAL: Laying in bed in the intensive care unit, on bed rest at this time. Appears comfortable, cooperative, no apparent acute distress. Rating his pain 4 out of 10 on the pain scale. HEENT: Neck is supple, no JVD, no lymphadenopathy. RESPIRATORY: Lungs sounds essentially clear throughout, diminished to his bilateral bases right greater than left. Respirations are symmetrical and nonlabored. Currently on 5 L nasal cannula with oxygen saturations 96%. Able to achieve 1500 mL on his incentive spirometry. Strong cough. CARDIOVASCULAR: Regular rhythm and rate. S1 and S2 present, negative for S3, gallop or murmur. Palpable peripheral pulses bilaterally, no edema to his bilateral lower extremities. No calf pain or tenderness noted. Bedside telemetry showing normal sinus rhythm heart rate 75 BPM. GASTROINTESTINAL: Abdomen soft, nontender, nondistended. Active bowel sounds present 4 quadrants. Tolerating diet. Passing flatus. No guarding or rigidity. GENITOURINARY: Continues to void. Urine output 875 mL in the last 8 hours. INTEGUMENTARY: Skin is warm and dry with no evidence of clubbing or cyanosis. Multiple tattoos. NEUROLOGIC: Cranial nerves II through XII intact. No focal deficits. MUSKULOSKELETAL: Able to move all extremities. Limited range of motion to his right arm due to trauma from the fall and pain with movement. Sling and placed to his right arm. PSYCHIATRIC: Alert and oriented to person place and time, appropriate affect, intact judgment and insight. - Allied health notes Allied health notes reviewed: nursing - Labs CBC & Chem 7: 11/13/21 05:08 11/13/21 05:08 Labs: Abnormal Lab Results - Last 24 Hours (Table) 11/13/21 11/13/21 Range/Units 05:08 05:08 RBC 3.81 L (4.30-5.90) m/uL Hgb 11.5 L (13.0-17.5) gm/dL Hct 34.5 L (39.0-53.0) % Plt Count 131 L (150-450) k/uL Creatinine 0.65 L (0.66-1.25) mg/dL Glucose 106 H (74-99) mg/dL - Imaging and Cardiology Chest x-ray: report reviewed, image reviewed Assessment and Plan Assessment: 1. Small right-sided pneumothorax status post fall off a roof, accidental 2. Right-sided rib fractures involving the second, seventh, eighth, 10th and 11th ribs, secondary from fall off a roof 3. Right-sided subcutaneous emphysema 4. Limited right basilar atelectasis/contusion 5. Right comminuted clavicle fracture 6. Right scapular fracture 7. Right transverse process fractures involving L2, L3 and L4 8. Calcified pulmonary nodules on chest x-ray and computed tomography scan of the chest 9. History of hypertension 10. Diabetes mellitus type 2 11. History of hepatitis C treated in 2010 12. Hypothyroidism 13. History of depression, maintained on Celexa 14. Remote history of nicotine dependence, quit smoking 38 years ago 15. Daily EtOH use with 1 beer per day 16. Remote history of IV drug use, has been clean for over 22 years. Plan: 1. Wean oxygen as tolerated, continue to encourage use of incentive spirometry 10 times every hour while awake. 2. Pain control per current when necessary orders. 3. GI and DVT prophylaxis. SCDs to bilateral lower extremities. 4. Continue to monitor daily chest x-rays for pneumothorax resolution. This morning's x-ray shows slight decrease in size of his right pneumothorax. 5. Once cleared from bed rest, increase activity as tolerated out of bed for all meals. 6. Medical management and other comorbidities per primary care service and trauma service. 7. More recommendations to follow based on patient's clinical course. Time with Patient: Greater than 30
[2021-11-13] MEDS: HYDROmorphone 1 MG/ML 1 ML SYRINGE IVP PRN ×4 (08:47→23:55)
[2021-11-13] MEDS: ONDANSETRON 4 MG/2 ML VIAL IVP PRN (08:47)
--- NOTE | 2021-11-13 09:19 | P.PN ---
Subjective Progress Note Date: 11/13/21 11/12/2021, the patient's pain is under better control. The chest x-ray showing a stable right apical pneumothorax and this was confirmed on 2 separate chest x- rays today. The subcutaneous emphysema over the anterior chest area is improved. The patient is hemodynamically stable and the patient is currently taking combination of Ultram and Toradol for pain control. Dilaudid made her nauseous and is not using the Dilaudid for now. Meanwhile, his condition remains stable. Hemodynamically stable. On the incentive spirometer, is pulling approximately 1500 and the patient is currently on 5 L about 2 by nasal cannula and was taken off the 100% nonrebreather facemask. He is currently awake and alert and following commands. No altered mentation. No nausea or vomiting. 5 2021, the patient is having issues with pain control. Overnight, his pain medication was somewhat reduced and this morning his pain is quite extensive. Based on that, the patient was given Toradol and Dilaudid and is currently feeling better. He is currently has a pain which is 2 out of 10 in severity. No significant sputum production. No hemodynamic instability. He is on oxygen at 5 L and the pulse ox is around 95%. No tachycardia. Cardiac rhythm is sinus. Adequate urine output. IV fluids are 75 mL an hour. The white cell count of 4.4 with a hemoglobin 11.5 and a platelet count of 131. BNP is at 13 with a creatinine of 0.6 and the sodium level is 137. Chest x-ray from today shows further diminution of the right apical pneumothorax. It is not completely subsided. No other complaints. No altered mentation. No nausea. No vomiting. Objective - Vital Signs Vital signs: Vital Signs Temp 96.5 F L 11/13/21 04:00 Pulse 80 11/13/21 07:00 Resp 12 11/13/21 07:00 BP 101/60 11/13/21 07:00 Pulse Ox 97 11/13/21 08:15 FiO2 Intake & Output 11/12/21 11/13/21 11/13/21 18:59 06:59 18:59 Intake Total 1850 1000 Output Total 300 1125 Balance 1550 -125 Weight 97.7 kg Intake: IV 1100 1000 Sodium Chloride 0.9% 1, 1100 1000 000 ml @ 75 mls/hr IV . [id number] [facility] Rx#:[id number] Oral 750 Output: Urine 300 1125 Other: Voiding Method Urinal Urinal ABP, PAP, CO, CI - Last Documented Arterial Blood Pressure 167/55 - Exam CONSTITUTIONAL: Laying in bed in the intensive care unit, on bed rest at this time. Appears comfortable, cooperative, no apparent acute distress. Rating his pain 4 out of 10 on the pain scale. HEENT: Neck is supple, no JVD, no lymphadenopathy. RESPIRATORY: Lungs sounds essentially clear throughout, diminished to his bilateral bases right greater than left. Respirations are symmetrical and nonlabored. Currently on 5 L nasal cannula with oxygen saturations 96%. Able to achieve 1500 mL on his incentive spirometry. Strong cough. CARDIOVASCULAR: Regular rhythm and rate. S1 and S2 present, negative for S3, gallop or murmur. Palpable peripheral pulses bilaterally, no edema to his bilateral lower extremities. No calf pain or tenderness noted. Bedside telemetry showing normal sinus rhythm heart rate 75 BPM. GASTROINTESTINAL: Abdomen soft, nontender, nondistended. Active bowel sounds present 4 quadrants. Tolerating diet. Passing flatus. No guarding or rigidity. GENITOURINARY: Continues to void. Urine output 875 mL in the last 8 hours. INTEGUMENTARY: Skin is warm and dry with no evidence of clubbing or cyanosis. Multiple tattoos. NEUROLOGIC: Cranial nerves II through XII intact. No focal deficits. MUSKULOSKELETAL: Able to move all extremities. Limited range of motion to his right arm due to trauma from the fall and pain with movement. Sling and placed to his right arm. PSYCHIATRIC: Alert and oriented to person place and time, appropriate affect, intact judgment and insight. - Labs CBC & Chem 7: 11/13/21 05:08 11/13/21 05:08 Labs: Abnormal Lab Results - Last 24 Hours (Table) 11/13/21 11/13/21 Range/Units 05:08 05:08 RBC 3.81 L (4.30-5.90) m/uL Hgb 11.5 L (13.0-17.5) gm/dL Hct 34.5 L (39.0-53.0) % Plt Count 131 L (150-450) k/uL Creatinine 0.65 L (0.66-1.25) mg/dL Glucose 106 H (74-99) mg/dL Assessment and Plan Plan: Fall off the roof, accidental Small right-sided pneumothorax, stable on today's chest x-ray probably in the order of 5-10%, chest x-ray from today shows further diminution of the right- sided pneumothorax Small right-sided subcutaneous emphysema, clinically improving Right-sided chest wall pain, pain is under better control for now the patient is on a combination of Toradol and Dilaudid right Acute hypoxic respiratory failure currently on 5 L of oxygen by nasal cannula Limited right basilar atelectasis/contusion Right comminuted clavicular fracturel the patient is awaiting a sling in his right upper extremity. Right scapular fracture Right-sided rib fractures involving the second, seventh, eighth and 11th rib Right transverse process fractures involving L2 L3 L4 Calcified pulmonary nodules Diabetes mellitus History of hepatitis C received treatment 2010 Osteoarthritis Hypertension Hypothyroidism Chronic anxiety/depression maintained on citalopram Plan Pain control with Toradol and Ultram, and using also Toradol for pain control Chest x-rays improved Subcutaneous emphysema is improved or stable IV fluids to KVO Incentive spirometer 5 L of O2 nasal cannula Repeat daily chest x-rays Monitor blood work Trauma surgery evaluation was completed No need for chest tube insertion We'll continue to follow
[2021-11-13] MEDS: PANTOPRAZOLE 40 MG TABLET PO SCH (09:51)
[2021-11-13] MEDS: HEPARIN SODIUM,PORCINE/PF 5,000 UNIT/0.5 ML SYRINGE SQ SCH ×3 (09:51→23:05)
[2021-11-13] MEDS: CITALOPRAM HYDROBROMIDE 20 MG TAB PO SCH (09:52)
--- NOTE | 2021-11-13 09:54 | P.PN ---
Subjective Progress Note Date: 11/13/21 Principal diagnosis: Fall with fractures Patient remains in the ICU. He is still on bed rest apparently until the brace for his lumbar fracture is fitted for him. We are clarifying with orthopedics. He is tolerating his diet. Pain was somewhat worse during the middle the night but better this morning. Chest x-ray shows slightly smaller pneumothorax. Labs are stable. Objective - Vital Signs Vital signs: Vital Signs Temp 96.5 F L 11/13/21 04:00 Pulse 80 11/13/21 07:00 Resp 12 11/13/21 07:00 BP 101/60 11/13/21 07:00 Pulse Ox 97 11/13/21 08:15 FiO2 Intake & Output 11/12/21 11/13/21 11/13/21 18:59 06:59 18:59 Intake Total 1850 1000 Output Total 300 1125 Balance 1550 -125 Weight 97.7 kg Intake: IV 1100 1000 Sodium Chloride 0.9% 1, 1100 1000 000 ml @ 75 mls/hr IV . [id number] [facility] Rx#:[id number] Oral 750 Output: Urine 300 1125 Other: Voiding Method Urinal Urinal ABP, PAP, CO, CI - Last Documented Arterial Blood Pressure 167/55 - Exam Chest: Right-sided chest tenderness, breath sounds equal Abdomen: Soft, nontender, nondistended - Labs CBC & Chem 7: 11/13/21 05:08 11/13/21 05:08 Labs: Abnormal Lab Results - Last 24 Hours (Table) 11/13/21 11/13/21 Range/Units 05:08 05:08 RBC 3.81 L (4.30-5.90) m/uL Hgb 11.5 L (13.0-17.5) gm/dL Hct 34.5 L (39.0-53.0) % Plt Count 131 L (150-450) k/uL Creatinine 0.65 L (0.66-1.25) mg/dL Glucose 106 H (74-99) mg/dL Assessment and Plan (1) Fall Narrative/Plan: Patient slowly improving. Continue analgesics. Continue pulmonary toilet. Transfer out of ICU per Dr. Rowe. Await clarification from orthopedics regarding bed rest. Current Visit: Yes Status: Acute Code(s): W19.XXXA - UNSPECIFIED FALL, INITIAL ENCOUNTER SNOMED Code(s): 7772405
[2021-11-13 11:44] LABS: Glucose,Whole Blood 118 mg/dL (70-110)
[2021-11-13] MEDS: KETOROLAC 15 MG/ML 1 ML VIAL IVP SCH ×3 (11:48→23:05)
--- NOTE | 2021-11-13 13:27 | P.PN ---
Subjective Progress Note Date: 11/13/21 This patient is a 61-year-old male with past medical history of hypertension, diabetes, thyroid disorder that presented to [facility] emergency department yesterday following a fall. The patient states he was working on his roof and fell 25 feet onto his right side. On presentation to the emergency department, right shoulder CT revealed comminuted fractures of the right scapula and right clavicle. CT of the chest abdomen pelvis revealed a small right pneumothorax, multiple right rib fractures, and right L2-L4 transverse process fractures. Patient was admitted to the ICU with a consult placed to orthopedic surgery for evaluation of his right scapula and clavicle fractures. Patient is examined bedside in the ICU this morning. He states his pain is well-controlled at this time. He localizes most of his pain to the right shoulder. He denies numbness or tingling of the right upper extremity. He denies back pain. He denies pain, numbness, tingling in his bilateral lower extremities. He overall is feeling well this morning. Vital signs stable. 11/13/21: Patient is examined bedside today. He states the pain in his right shoulder and lower back is well-controlled at this time. Sling is in place. He has not yet obtained his LSO brace. Per nursing he is to be transferred out of the ICU this afternoon. He denies numbness or tingling bilateral lower extremities. No new complaints today. He is relatively comfortable. Objective - Vital Signs Vital signs: Vital Signs Temp 98.4 F 11/13/21 12:00 Pulse 75 11/13/21 12:00 Resp 22 11/13/21 12:00 BP 107/65 11/13/21 12:00 Pulse Ox 97 11/13/21 12:00 FiO2 Intake & Output 11/12/21 11/13/21 11/13/21 18:59 06:59 18:59 Intake Total 1850 1000 155 Output Total 300 1125 275 Balance 1550 -125 -120 Weight 97.7 kg Intake: IV 1100 1000 155 Sodium Chloride 0.9% 1, 1100 1000 155 000 ml @ 75 mls/hr IV . [id number] [facility] Rx#:[id number] Oral 750 Output: Urine 300 1125 275 Other: Voiding Method Urinal Urinal Urinal # Voids 0 ABP, PAP, CO, CI - Last Documented Arterial Blood Pressure 167/55 - Exam On examination, the patient is sitting up in bed in no apparent distress. On inspection of his right shoulder and right upper extremity, there are no open wounds, lacerations. Skin is intact. There is a sling in place. There is mild swelling about the right shoulder. There is diffuse pain on palpation of the shoulder, clavicle. No pain on palpation of the C-spine. No pain on palpation of the right elbow, forearm, wrist, hand. Scrik-no-dvykya of the right shoulder is not tested. No pain with passive [id number] of the right elbow, wrist. Motor and sensory function is intact of the right upper extremity. Radial pulse easily palpable, right upper extremity warm and well-perfused with brisk capillary refill of all fingers. Motor and sensory function is intact of the bilateral lower extremities. Calves are soft and nontender to palpation bilaterally. - Labs CBC & Chem 7: 11/13/21 05:08 11/13/21 05:08 Labs: Abnormal Lab Results - Last 24 Hours (Table) 11/13/21 11/13/21 11/13/21 Range/Units 05:08 05:08 11:42 RBC 3.81 L (4.30-5.90) m/uL Hgb 11.5 L (13.0-17.5) gm/dL Hct 34.5 L (39.0-53.0) % Plt Count 131 L (150-450) k/uL Creatinine 0.65 L (0.66-1.25) mg/dL Glucose 106 H (74-99) mg/dL POC Glucose (mg/dL) 118 H (70-110) mg/dL Assessment and Plan Assessment: Right scapular body fracture Right comminuted clavicle fracture L2-L4 right transverse process fractures Plan: - Sling immobilization right upper extremity. He should keep splint times except hygiene. Non-weight bearing RUE. - Patient should remain on bed rest until LSO brace is obtained. Once brace is obtained, he may get out of bed and mobilize with physical therapy while wearing the brace. - Pain management as needed. - Patient will require follow-up in the office 1 week following discharge for repeat x-rays.
[2021-11-13 16:06] LABS: Glucose,Whole Blood 116 mg/dL (70-110)
--- NOTE | 2021-11-13 17:15 | P.PN ---
Subjective Progress Note Date: 11/13/21 61-year-old male fell off two floors roof. Patient found to have right clavicle fracture right scapular fracture small right apical pneumothorax comminuted fracture of right posterior second rib, multilevel degenerative disc disease fractures of L1 and L3-L4 transverse process. Patient also has a calculated lung nodule which is an incidental finding on the multiple CTs patient's pain is fairly well controlled patient denied any fever chills patient the denied any syncopal episode episode. Urine drug screen is positive for amphetamines. 11/13/2021 Patient continues to be evaluated in the intensive are unit status post fall from 2 stories. Chest xray this morning showing marginal decrease in small right apical penumothorax. There is small left pleural effusion with atelectasis and mildly displaced seventh and eighth rib fractures. Cardiothoracic is following. Orthopedics has ordered LSO brace which is pending fitting. He is also seeing anesthesia services for pain management. He does state that his pain is being adequately controlled while resting in bed. He is urrently bedrest until he r eceives his LSO brace. Has not had BM does have positive bowel sounds. Receiving IV fluids with normal saline. Pt is afebrile, heart rate 80, blood pressure 101/60, 97% currently on 4L nasal cannula. Labs today showing white count of 4.4, hgb 11.5, sodium 137, potassium 4.3, BUN 13, creatinine 0.65. Blood glucose stable. Review of Systems Constitutional: Denied any fatigue denied any fever. Cardio vascular: denied any chest pain, palpitations Gastrointestinal: denied any nausea, vomiting, diarrhea, no BM Pulmonary: Denied any shortness of breath cough Neurologic denied any new focal deficits All inpatient medications were reviewed and appropriate changes in these medications as dictated in the interval history and assessment and plan. PHYSICAL EXAMINATION: GENERAL: The patient is alert and oriented x3, not in any acute distress. Well developed, well nourished. HEENT: Pupils are round and equally reacting to light. EOMI. No scleral icterus. No conjunctival pallor. Normocephalic, atraumatic. No pharyngeal erythema. No thyromegaly. CARDIOVASCULAR: S1 and S2 present. No murmurs, rubs, or gallops. PULMONARY: Chest is clear to auscultation, no wheezing or crackles. ABDOMEN: Soft, nontender, nondistended, normoactive bowel sounds. No palpable organomegaly. MUSCULOSKELETAL: As mentioned above EXTREMITIES: No cyanosis, clubbing, or pedal edema. His right arm is in immobil izer sling. NEUROLOGICAL: Gross neurological examination did not reveal any focal deficits. SKIN: No rashes. Assessment and plan -Fall, trauma with right clavicle/scapula fracture, right transverse process fracture of L2, L3 and L4, and displaced right #2/7/8/10/11 rib fractures. Patient is pending LSO brace fitting, conservative management and also pain management. -Right apical pneumothorax secondary to accidental fall from roof, slightly improved today, cardiothoracic following patient closely -Left pleural effusion -Diabetes mellitus patient was started on sliding scale insulin hold off on by mouth medications -Hypertension patient is been become hypotensive side holding off on his lisinopril -Hypothyroidism continue with levothyroxine -Depression continue citalopram -Former nicotine use -History of IV drug use -Hepatitis C with treatment in 2010 -Daily ETOH use monitor for acute alcohol withdrawal DVT prophylaxis: On subcutaneous heparin GI prophylaxis: protonix Full Code The impression and plan of care has been dictated by Kim Calero Nurse Prac titioner as directed. Dr. Ana MD I have performed a history and physical examination and medical decision making of this patient, discussed the same with the dictator, and agree with the dictators assessment and plan as written, documented as a scribe. Based on total visit time, I have performed more than 50% of this visit. Objective - Vital Signs Vital signs: Vital Signs Temp 96.5 F L 11/13/21 04:00 Pulse 80 11/13/21 07:00 Resp 12 11/13/21 07:00 BP 101/60 11/13/21 07:00 Pulse Ox 97 11/13/21 08:15 FiO2 Intake & Output 11/12/21 11/13/21 11/13/21 18:59 06:59 18:59 Intake Total 1850 1000 Output Total 300 1125 Balance 1550 -125 Weight 97.7 kg Intake: IV 1100 1000 Sodium Chloride 0.9% 1, 1100 1000 000 ml @ 75 mls/hr IV . [id number] [facility] Rx#:[id number] Oral 750 Output: Urine 300 1125 Other: Voiding Method Urinal Urinal ABP, PAP, CO, CI - Last Documented Arterial Blood Pressure 167/55 - Labs CBC & Chem 7: 11/13/21 05:08 11/13/21 05:08 Labs: Abnormal Lab Results - Last 24 Hours (Table) 11/13/21 11/13/21 Range/Units 05:08 05:08 RBC 3.81 L (4.30-5.90) m/uL Hgb 11.5 L (13.0-17.5) gm/dL Hct 34.5 L (39.0-53.0) % Plt Count 131 L (150-450) k/uL Creatinine 0.65 L (0.66-1.25) mg/dL Glucose 106 H (74-99) mg/dL Assessment and Plan Time with Patient: Less than 30
[2021-11-13 20:30] LABS: Glucose,Whole Blood 107 mg/dL (70-110)
[2021-11-14] MEDS: HYDROmorphone 1 MG/ML 1 ML SYRINGE IVP PRN ×3 (04:46→20:38)
[2021-11-14 05:35] LABS: Glucose,Whole Blood 118 mg/dL (70-110)
--- NOTE | 2021-11-14 06:17 | XR ---
EXAMINATION TYPE: XR chest 1V portable DATE OF EXAM: 11/14/2021 CLINICAL HISTORY: Right-sided pneumothorax progress study. TECHNIQUE: Single AP portable semiupright view of the chest is obtained. COMPARISON: Chest x-ray from one day earlier and older studies. FINDINGS: Prior tiny right-sided pneumothorax now less well seen. Persistent small left pleural effu rand and left basilar opacity and background chronic parenchymal change. Persistent lateral right mid lung 1.8 cm nodule corresponding to calcified granuloma. Displaced mid right lateral rib fractures a re redemonstrated. IMPRESSION: No obvious visualized pneumothorax on current study. Stable small left pleural effusion a nd associated left basilar atelectasis and/or acute infiltrate.
[2021-11-14] MEDS: INSULIN ASPART (NovoLOG) 100 UNIT/ML VIAL SQ SCH ×4 (06:31→22:24)
[2021-11-14] MEDS: PANTOPRAZOLE 40 MG TABLET PO SCH (06:43)
[2021-11-14] MEDS: KETOROLAC 15 MG/ML 1 ML VIAL IVP SCH ×4 (06:43→23:09)
[2021-11-14] MEDS: LEVOTHYROXINE 100 MCG TAB PO SCH (06:43)
[2021-11-14] MEDS ORDERED: MAGNESIUM HYDROXIDE 2,400 MG/10 ML CUP PO PRN (07:45)
[2021-11-14] MEDS ORDERED: bisacodyL 10 MG SUPP RECTAL PRN (07:45)
--- NOTE | 2021-11-14 08:02 | P.PN ---
Subjective Progress Note Date: 11/14/21 Principal diagnosis: Acute right-sided pneumothorax, multiple right-sided rib fractures, right comminuted clavicle fracture, right scapular fracture, right transverse process fractures involving L2, L3 and L4, status post fall from roof. Previous medical history of hypertension, diabetes mellitus type 2, hypothyroidism, depression, sleep apnea without home CPAP use, history of hepatitis C which was treated in 2010, remote history of nicotine dependence quit smoking 38 years ago, daily EtOH use with one beer daily and remote history of IV drug abuse in which he reports he has been clean for 22 years. The patient was seen and examined this morning sitting up in bed in the intensive care unit in no acute distress eating breakfast. States pain is controlled with current medication regimen, denies shortness of breath. Remains in sinus rhythm, hemodynamically stable. Chest x-ray this morning revealed no pneumothorax. Patient is waiting for back brace in order to get out of bed, otherwise no new concerns. Objective - Vital Signs Vital signs: Vital Signs Temp 97.8 F 11/14/21 02:00 Pulse 79 11/14/21 02:00 Resp 16 11/14/21 02:00 BP 101/65 11/14/21 02:00 Pulse Ox 93 L 11/14/21 07:44 FiO2 Intake & Output 11/13/21 11/14/21 11/14/21 18:59 06:59 18:59 Intake Total 155 600 250 Output Total 275 700 150 Balance -120 -100 100 Intake: IV 155 0 Sodium Chloride 0.9% 1, 155 0 000 ml @ 75 mls/hr IV . [id number] [facility] Rx#:[id number] Oral 600 250 Output: Urine 275 700 150 Other: Voiding Method Urinal Urinal # Voids 0 ABP, PAP, CO, CI - Last Documented Arterial Blood Pressure 167/55 - Exam CONSTITUTIONAL: Appears comfortable, cooperative, no acute distress RESPIRATORY: Lungs sounds diminished bilaterally. Respirations even, nonlabored. Currently on 5 L nasal cannula with oxygen saturation 93%. Able to achieve 8702-6787 mL on incentive spirometry. Strong cough. CARDIOVASCULAR: S1, S2 present. Regular rate and rhythm, sinus rhythm on telemetry. Palpable peripheral pulses bilaterally. No edema present. No calf pain or tenderness noted. SCDs present. GASTROINTESTINAL: Abdomen soft, nontender, nondistended. Active bowel sounds present 4 quadrants. Tolerating diet. GENITOURINARY: Continues to void clear, yellow urine INTEGUMENTARY: Skin is warm and dry with evidence of good perfusion. NEUROLOGIC: Cranial nerves II through XII intact MUSKULOSKELETAL: Able to move all extremities, strength equal bilaterally PSYCHIATRIC: Alert and oriented to person place and time, appropriate affect, intact judgment and insight - Labs CBC & Chem 7: 11/13/21 05:08 11/13/21 05:08 Labs: Abnormal Lab Results - Last 24 Hours (Table) 11/13/21 11/13/21 11/14/21 Range/Units 11:42 16:05 05:34 POC Glucose (mg/dL) 118 H 116 H 118 H (70-110) mg/dL - Imaging and Cardiology Chest x-ray: report reviewed, image reviewed Assessment and Plan Assessment: 1. Small right-sided pneumothorax status post fall off a roof, accidental 2. Right-sided rib fractures involving the second, seventh, eighth, 10th and 11th ribs, secondary from fall off a roof 3. Right-sided subcutaneous emphysema 4. Limited right basilar atelectasis/contusion 5. Right comminuted clavicle fracture 6. Right scapular fracture 7. Right transverse process fractures involving L2, L3 and L4 8. Calcified pulmonary nodules on chest x-ray and computed tomography scan of the chest 9. History of hypertension 10. Diabetes mellitus type 2 11. History of hepatitis C treated in 2010 12. Hypothyroidism 13. History of depression, maintained on Celexa 14. Remote history of nicotine dependence, quit smoking 38 years ago 15. Daily EtOH use with 1 beer per day 16. Remote history of IV drug use, has been clean for over 22 years. Plan: 1. Wean oxygen as tolerated, continue to encourage use of incentive spirometry 10 times every hour while awake. 2. Pain control per current medication regimen 3. GI and DVT prophylaxis. SCDs to bilateral lower extremities. 4. Chest x-ray reviewed this morning, reveals no pneumothorax 5. Once cleared from bed rest, increase activity as tolerated out of bed for all meals. 6. Medical management and other comorbidities per primary care service and trauma service. 7. No surgical intervention necessary. Will see again on an as-needed basis. Please call us with any further questions
--- NOTE | 2021-11-14 08:42 | P.PN ---
Progress Note - Text Progress Note Date: 11/14/21 Orthopedics: History of present illness: Patient is a very pleasant 61-year-old male who is seen and examined in the ICU for further evaluation regards to his lumbar spine, right clavicle, and right scapula. He is known to have sustained a fall off a roof on 11/11/2021. He sustained multiple fractures including right scapular fracture, right clavicle fracture, multiple right rib fractures, and right transverse process fractures along with small pneumothorax. Patient feels he is improving in regards to his breathing. He is hoping to be clear for discharge. He states pain most significant over the right clavicle and right scapula. He is utilizing a sling for the right upper extremity. He is not specifically experiencing any significant pain at his right lower lumbar spine. A prescription has been written and signed to obtain an LSO brace. This brace has not yet been delivered today. He is not currently complaining of any lower extremity weakness or radiculopathy bilaterally. Patient is remaining in bed until this brace is delivered and fitted appropriately. He is admitted to trauma surgery. He is also being seen by pulmonology. Patient states he is urinating without difficulty. Physical exam: Patient is awake, alert, and oriented 3 Vital signs appear stable Adequate chest excursion with deep inspiration and expiration No significant pain with palpation over the right lateral lumbar spine Sling in place over the right upper extremity Neurovascularly intact right upper extremity Some swelling over the right scapula and trapezius with mild bruising Pain with palpation over the right clavicle and scapula Assessment: Status post fall from roof Right comminuted clavicle fracture Right scapular body fracture Right transverse process fractures at L2, L3, and L4 Small pneumothorax Diabetes mellitus History of hepatitis C History thyroid disorder History hypertension Plan: 1. Patient is known to have sustained multiple right-sided transverse process fractures at L2, L3, and L4 after falling from a roof. A prescription has been written consent signed for an LSO brace to be obtained. This has been discussed in detail with nursing today. We're hopeful that this brace will be delivered and fitted appropriately today. Patient will continue on bed rest until this brace is delivered and fitted properly. Once this brace is delivered and fitted appropriately patient may increase his mobility and ambulation. We did discuss from an orthopedic spine standpoint he would be clear for discharge following the fitting of this LSO brace. Patient should wear this brace while sitting upright at greater than 45, during increase activities, during ambulation. Brace does not have to or while lying in bed or while bathing. Following fittin g of this brace, patient is clear for discharge from an orthopedic spine standpoint. Following discharge, patient may follow-up with Jeol Willis PA-C or Dr. Mohan Manuel at [facility] approximately 1-2 weeks for further evaluation. In regards to his right comminuted clavicle fracture and right scapular body fracture, he should remain strict nonweightbearing for the right upper extremity. He should keep his sling intact with the right upper extremity at all times except during bathing or showering. He'll plan to follow up with Dr. Vic Allison at [facility] in approximately 1 week for follow-up evaluation with repeat x-rays to be taken at that time. 2. Patient will continue to be seen in exam by multiple other medical providers including trauma surgery and pulmonology
[2021-11-14] MEDS: SENNOSIDES-DOCUSATE SODIUM 1 EACH TAB PO SCH (11:00)
[2021-11-14] MEDS: HEPARIN SODIUM,PORCINE/PF 5,000 UNIT/0.5 ML SYRINGE SQ SCH ×3 (11:00→23:10)
[2021-11-14] MEDS: CITALOPRAM HYDROBROMIDE 20 MG TAB PO SCH (11:00)
[2021-11-14 11:11] LABS: Glucose,Whole Blood 99 mg/dL (70-110)
--- NOTE | 2021-11-14 12:28 | P.PN ---
Subjective Progress Note Date: 11/14/21 Principal diagnosis: Multiple rib fractures and right-sided pneumothorax secondary to fall 11/12/2021, the patient's pain is under better control. The chest x-ray showing a stable right apical pneumothorax and this was confirmed on 2 separate chest x- rays today. The subcutaneous emphysema over the anterior chest area is improved. The patient is hemodynamically stable and the patient is currently taking combination of Ultram and Toradol for pain control. Dilaudid made her nauseous and is not using the Dilaudid for now. Meanwhile, his condition remains stable. Hemodynamically stable. On the incentive spirometer, is pulling approximately 1500 and the patient is currently on 5 L about 2 by nasal cannula and was taken off the 100% nonrebreather facemask. He is currently awake and alert and following commands. No altered mentation. No nausea or vomiting. 5 2021, the patient is having issues with pain control. Overnight, his pain medication was somewhat reduced and this morning his pain is quite extensive. Based on that, the patient was given Toradol and Dilaudid and is currently feeling better. He is currently has a pain which is 2 out of 10 in severity. No significant sputum production. No hemodynamic instability. He is on oxygen at 5 L and the pulse ox is around 95%. No tachycardia. Cardiac rhythm is sinus. Adequate urine output. IV fluids are 75 mL an hour. The white cell count of 4.4 with a hemoglobin 11.5 and a platelet count of 131. BNP is at 13 with a creatinine of 0.6 and the sodium level is 137. Chest x-ray from today shows further diminution of the right apical pneumothorax. It is not completely subsided. No other complaints. No altered mentation. No nausea. No vomiting. Reevaluated today on 11/14/2021, patient seems to be doing well, no surgical intervention is necessary for his right-sided pneumothorax. Patient is not in any distress, he is on room air, hence I plan to transfer the patient out of the ICU to a regular medical floor. Continue present supportive care measures, consider discharge planning if cleared by other consultants Objective - Vital Signs Vital signs: Vital Signs Temp 98.1 F 11/14/21 10:51 Pulse 75 11/14/21 10:51 Resp 17 11/14/21 10:51 BP 98/62 11/14/21 10:51 Pulse Ox 95 11/14/21 11:16 FiO2 Intake & Output 11/13/21 11/14/21 11/14/21 18:59 06:59 18:59 Intake Total 155 600 250 Output Total 275 700 150 Balance -120 -100 100 Intake: IV 155 0 Sodium Chloride 0.9% 1, 155 0 000 ml @ 75 mls/hr IV . [id number] [facility] Rx#:[id number] Oral 600 250 Output: Urine 275 700 150 Other: Voiding Method Urinal Urinal Urinal # Voids 0 ABP, PAP, CO, CI - Last Documented Arterial Blood Pressure 167/55 - Exam Physical Exam: Revealed a 61-year-old white male in no distress. Head: Atraumatic, normocephalic. HEENT:[Neck is supple.] [No neck masses.] [No thyromegaly.] [No JVD.] Chest: [Clear throughout, no crackles, no rhonchi, no wheezes.] Cardiac Exam: [Normal S1 and S2, no S3 gallop, no murmur.] Abdomen: [Soft, nontender, no megaly, no rebound, no guarding, normal bowel sounds.] Extremities: [No clubbing, no edema, no cyanosis.] Neurological Exam: [No focal neurologic deficit.] - Labs CBC & Chem 7: 11/13/21 05:08 11/13/21 05:08 Labs: Abnormal Lab Results - Last 24 Hours (Table) 11/13/21 11/14/21 Range/Units 16:05 05:34 POC Glucose (mg/dL) 116 H 118 H (70-110) mg/dL Assessment and Plan Assessment: Impression: Multiple right-sided rib fractures secondary to fall Small tiny right apical pneumothorax secondary to rib fractures Right sided comminuted clavicular fracture Right scapular fracture Right transverse process fracture involving L2 L3 L4 Type 2 diabetes. History of hepatitis C, received treatment in 2010 Benign essential hypertension Recommendation: Continue pain control Transfer patient out of the ICU to a regular medical floor Continue incentive spirometry Will clear the patient to be discharged home if cleared by other consultants. Follow-up on outpatient basis with Dr. Rowe Time with Patient: Less than 30
[2021-11-14 19:07] LABS: Glucose,Whole Blood 90 mg/dL (70-110)
[2021-11-14 21:06] LABS: Glucose,Whole Blood 102 mg/dL (70-110)
--- NOTE | 2021-11-14 21:07 | P.PN ---
Subjective Progress Note Date: 11/14/21 Principal diagnosis: Fall with fractures Patient this morning was frustrated with his pain control apparently. There was concern he was having withdrawal symptoms. Since then the patient says he is doing much better. He is still waiting on his lumbar brace but would like to t ry going home tomorrow if cleared. Denies shortness of breath. Today's x-ray shows no pneumothorax. Objective - Vital Signs Vital signs: Vital Signs Temp 98.1 F 11/14/21 10:51 Pulse 75 11/14/21 10:51 Resp 17 11/14/21 10:51 BP 98/62 11/14/21 10:51 Pulse Ox 95 11/14/21 11:16 FiO2 Intake & Output 11/14/21 11/14/21 11/15/21 06:59 18:59 06:59 Intake Total 600 250 Output Total 700 150 400 Balance -100 100 -400 Intake: IV 0 Sodium Chloride 0.9% 1, 0 000 ml @ 75 mls/hr IV . [id number] [facility] Rx#:[id number] Oral 600 250 Output: Urine 700 150 400 Other: Voiding Method Urinal Urinal ABP, PAP, CO, CI - Last Documented Arterial Blood Pressure 167/55 - Exam Chest: Right-sided chest tenderness, right arm sling in place abdomen: Soft, nontender, nondistended - Labs CBC & Chem 7: 11/13/21 05:08 11/13/21 05:08 Labs: Abnormal Lab Results - Last 24 Hours (Table) 11/14/21 Range/Units 05:34 POC Glucose (mg/dL) 118 H (70-110) mg/dL Assessment and Plan (1) Fall Narrative/Plan: patient doing better at this time. Anticipate discharge tomorrow if cleared by consultants. Current Visit: Yes Status: Acute Code(s): W19.XXXA - UNSPECIFIED FALL, INITIAL ENCOUNTER SNOMED Code(s): 4279876
[2021-11-15] MEDS: HYDROmorphone 1 MG/ML 1 ML SYRINGE IVP PRN ×3 (00:08→08:55)
[2021-11-15] MEDS: KETOROLAC 15 MG/ML 1 ML VIAL IVP SCH ×2 (05:17→14:54)
[2021-11-15] MEDS: LEVOTHYROXINE 100 MCG TAB PO SCH (05:17)
[2021-11-15 07:00] LABS: Glucose,Whole Blood 115 mg/dL (70-110)
[2021-11-15 07:25] VITALS: RESP 18
[2021-11-15] MEDS: INSULIN ASPART (NovoLOG) 100 UNIT/ML VIAL SQ SCH ×2 (07:45→12:45)
[2021-11-15] MEDS: HEPARIN SODIUM,PORCINE/PF 5,000 UNIT/0.5 ML SYRINGE SQ SCH (08:20)
[2021-11-15] MEDS: CITALOPRAM HYDROBROMIDE 20 MG TAB PO SCH (08:21)
[2021-11-15] MEDS: traMADol 50 MG TAB PO PRN (08:21)
[2021-11-15] MEDS: PANTOPRAZOLE 40 MG TABLET PO SCH (08:21)
[2021-11-15] MEDS: SENNOSIDES-DOCUSATE SODIUM 1 EACH TAB PO SCH (08:21)
[2021-11-15] MEDS ORDERED: DOCUSATE 100 MG CAP PO SCH (10:30)
[2021-11-15] MEDS: HYDROcodone/APAP 5-325MG 1 EACH TAB PO PRN ×2 (11:33→16:48)
[2021-11-15 11:40] LABS: Glucose,Whole Blood 109 mg/dL (70-110)
--- NOTE | 2021-11-15 11:55 | P.PN ---
Subjective Progress Note Date: 11/15/21 Principal diagnosis: Multiple rib fractures, right scapula and right clavicle fractures,Transverse process fractures. This patient is a 61-year-old male with past medical history of hypertension, diabetes, thyroid disorder that presented to [facility] emergency department yesterday following a fall. The patient states he was working on his roof and fell 25 feet onto his right side. On presentation to the emergency department, right shoulder CT revealed comminuted fractures of the right scapula and right clavicle. CT of the chest abdomen pelvis revealed a small right pneumothorax, multiple right rib fractures, and right L2-L4 transverse process fractures. Patient was admitted to the ICU with a consult placed to orthopedic surgery for evaluation of his right scapula and clavicle fractures. Patient is examined bedside in the ICU this morning. He states his pain is well-controlled at this time. He localizes most of his pain to the right shoulder. He denies numbness or tingling of the right upper extremity. He denies back pain. He denies pain, numbness, tingling in his bilateral lower extremities. He overall is feeling well this morning. Vital signs stable. 11/13/21: Patient is examined bedside today. He states the pain in his right shoulder and lower back is well-controlled at this time. Sling is in place. He has not yet obtained his LSO brace. Per nursing he is to be transferred out of the ICU this afternoon. He denies numbness or tingling bilateral lower extremities. No new complaints today. He is relatively comfortable. 11/15/2021: Patient is examined at bedside. He is having increased pain. He is due for pain medication. Otherwise no new complaints or concerns. Vital signs are stable. Objective - Vital Signs Vital signs: Vital Signs Temp 97.9 F 11/15/21 07:24 Pulse 70 11/15/21 07:24 Resp 18 11/15/21 07:24 BP 128/81 11/15/21 07:24 Pulse Ox 96 11/15/21 07:24 FiO2 Intake & Output 11/14/21 11/15/21 11/15/21 18:59 06:59 18:59 Intake Total 250 296 Output Total 150 650 Balance 100 -650 296 Intake: Oral 250 296 Output: Urine 150 650 Other: Voiding Method Urinal Urinal ABP, PAP, CO, CI - Last Documented Arterial Blood Pressure 167/55 - Exam This is a pleasant 61-year-old male in no acute distress. He is having increased pain at this time. Sling is in place. There is mild tenderness to the clavicle and scapular region. Minimal back pain with palpation. Full finger motion without difficulty or pain. Neurovascular status the upper extremity is intact. - Labs CBC & Chem 7: 11/13/21 05:08 11/13/21 05:08 Labs: Abnormal Lab Results - Last 24 Hours (Table) 11/15/21 Range/Units 06:58 POC Glucose (mg/dL) 115 H (70-110) mg/dL Assessment and Plan (1) Fall Current Visit: Yes Status: Acute Code(s): W19.XXXA - UNSPECIFIED FALL, INITIAL ENCOUNTER SNOMED Code(s): 4244479 (2) Fracture, clavicle Current Visit: Yes Status: Acute Code(s): S42.009A - FRACTURE OF UNSP PART OF UNSP CLAVICLE, INIT FOR CLOS FX SNOMED Code(s): 61452005 (3) Lumbar vertebral fracture Current Visit: Yes Status: Acute Code(s): S32.009A - UNSP FRACTURE OF UNSP LUMBAR VERTEBRA, INIT FOR CLOS FX SNOMED Code(s): 317624733 (4) Multiple rib fractures Current Visit: Yes Status: Acute Code(s): S22.49XA - MULTIPLE FRACTURES OF RIBS, UNSP SIDE, INIT FOR CLOS FX SNOMED Code(s): 0103848 (5) Pneumothorax Current Visit: Yes Status: Acute Code(s): J93.9 - PNEUMOTHORAX, UNSPECIFIED SNOMED Code(s): 08412580 (6) Scapula fracture Current Visit: Yes Status: Acute Code(s): S42.109A - FRACTURE OF UNSP PART OF SCAPULA, UNSP SHOULDER, INIT SNOMED Code(s): 2786412 Plan: The clinical findings are discussed with the patient. He may be discharged from an orthopedic standpoint once the patient's back brace has arrived and has been fitted. Continue current care until discharged by trauma services.
[2021-11-15 13:41] VITALS: BP 122/76; PULSE 72; TEMP 98.1
--- NOTE | 2021-11-15 14:36 | P.PN ---
Subjective Progress Note Date: 11/14/21 61-year-old male fell off two floors roof. Patient found to have right clavicle fracture right scapular fracture small right apical pneumothorax comminuted fracture of right posterior second rib, multilevel degenerative disc disease fractures of L1 and L3-L4 transverse process. Patient also has a calculated lung nodule which is an incidental finding on the multiple CTs patient's pain is fairly well controlled patient denied any fever chills patient the denied any syncopal episode episode. Urine drug screen is positive for amphetamines. 11/13/2021 Patient continues to be evaluated in the intensive are unit status post fall from 2 stories. Chest xray this morning showing marginal decrease in small right apical penumothorax. There is small left pleural effusion with atelectasis and mildly displaced seventh and eighth rib fractures. Cardiothoracic is following. Orthopedics has ordered LSO brace which is pending fitting. He is also seeing anesthesia services for pain management. He does state that his pain is being adequately controlled while resting in bed. He is urrently bedrest until he receives his LSO brace. Has not had BM does have positive bowel sounds. Receiving IV fluids with normal saline. Pt is afebrile, heart rate 80, blood pressure 101/60, 97% currently on 4L nasal cannula. Labs today showing white count of 4.4, hgb 11.5, sodium 137, potassium 4.3, BUN 13, creatinine 0.65. Blood glucose stable. Review of Systems Constitutional: Denied any fatigue denied any fever. Cardio vascular: denied any chest pain, palpitations Gastrointestinal: denied any nausea, vomiting, diarrhea, no BM Pulmonary: Denied any shortness of breath cough Neurologic denied any new focal deficits All inpatient medications were reviewed and appropriate changes in these medications as dictated in the interval history and assessment and plan. PHYSICAL EXAMINATION: GENERAL: The patient is alert and oriented x3, not in any acute distress. Well developed, well nourished. HEENT: Pupils are round and equally reacting to light. EOMI. No scleral icterus. No conjunctival pallor. Normocephalic, atraumatic. No pharyngeal erythema. No thyromegaly. CARDIOVASCULAR: S1 and S2 present. No murmurs, rubs, or gallops. PULMONARY: Chest is clear to auscultation, no wheezing or crackles. ABDOMEN: Soft, nontender, nondistended, normoactive bowel sounds. No palpable organomegaly. MUSCULOSKELETAL: As mentioned above EXTREMITIES: No cyanosis, clubbing, or pedal edema. His right arm is in immobi lizer sling. NEUROLOGICAL: Gross neurological examination did not reveal any focal deficits. SKIN: No rashes. Assessment and plan -Fall, trauma with right clavicle/scapula fracture, right transverse process fracture of L2, L3 and L4, and displaced right #2/7/8/10/11 rib fractures. Patient is pending LSO brace fitting, conservative management and also pain management. -Right apical pneumothorax secondary to accidental fall from roof, slightly improved today, cardiothoracic following patient closely -Left pleural effusion -Diabetes mellitus patient was started on sliding scale insulin hold off on by mouth medications -Hypertension patient is been become hypotensive side holding off on his lisinopril -Hypothyroidism continue with levothyroxine -Depression continue citalopram -Former nicotine use -History of IV drug use -Hepatitis C with treatment in 2010 -Daily ETOH use monitor for acute alcohol withdrawal DVT prophylaxis: On subcutaneous heparin GI prophylaxis: protonix Full Code Objective - Vital Signs Vital signs: Vital Signs Temp 98.0 F 11/14/21 19:36 Pulse 74 11/14/21 19:36 Resp 20 11/14/21 19:36 BP 109/70 11/14/21 19:36 Pulse Ox 98 11/14/21 19:36 FiO2 Intake & Output 11/14/21 11/14/21 11/15/21 06:59 18:59 06:59 Intake Total 600 250 Output Total 700 150 400 Balance -100 100 -400 Intake: IV 0 Sodium Chloride 0.9% 1, 0 000 ml @ 75 mls/hr IV . [id number] COUNT INCLUDES THE [facility] Rx#:[id number] Oral 600 250 Output: Urine 700 150 400 Other: Voiding Method Urinal Urinal ABP, PAP, CO, CI - Last Documented Arterial Blood Pressure 167/55 - Labs CBC & Chem 7: 11/13/21 05:08 11/13/21 05:08 Labs: Abnormal Lab Results - Last 24 Hours (Table) 11/14/21 Range/Units 05:34 POC Glucose (mg/dL) 118 H (70-110) mg/dL
--- NOTE | 2021-11-15 14:53 | P.DS ---
Providers Date of admission: 11/11/21 13:46 Expected date of discharge: 11/15/21 Attending physician: Mauricio Hines Consults: 11/11/21 13:46 Consult Physician Routine Consulting Provider: Vic Allison Consult Reason/Comments: Multiple fractures Do you want consulting provider notified?: Already Contacted 11/11/21 13:53 Consult Physician Urgent Consulting Provider: Rob Tran Consult Reason/Comments: Pneumothorax/multiple rib fractures Do you want consulting provider notified?: Already Contacted 11/11/21 14:26 Consult Physician Routine Consulting Provider: Best Rowe Consult Reason/Comments: ICU patient. Multiple rib fractures. Pneumothorax Do you want consulting provider notified?: Already Contacted 11/11/21 16:41 Consult to Anesthesia Routine Consulting Provider: Anesthesia,Services Consult Reason/Comments: Pain Management 11/11/21 16:47 Consult Physician Routine Consulting Provider: Wilda Leiva Consult Reason/Comments: meidcal management Do you want consulting provider notified?: Yes Primary care physician: Yinka Lara Hospital Course: Discharge diagnosis Multiple right-sided rib fractures secondary to fall Small tiny right apical pneumothorax secondary to rib fractures Right sided comminuted clavicular fracture Right scapular fracture Right transverse process fracture involving L2 L3 L4 Hospital course This is a 61-year-old male who presents to the ER after falling 20 feet from his roof while working on shingles. Patient with evidence of right scapular, right clavicular, right multiple rib fractures, transverse process fracture of lumbar spine. Small pneumothorax and small hemothorax right side. Patient was seen by pulmonary service and orthopedic service during this admission. Orthopedic service has ordered a lumbar back brace and has cleared patient for discharge. Patient has also been cleared by pulmonary service for discharge. He is on room air. His pain is controlled. He is afebrile. Patient is to receive the lumbar back brace later this afternoon. If patient ambulates with a back brace and pain is controlled he is stable for discharge. This has been discussed with patient's nurse. Patient had no surgical intervention completed during this admission. Orthopedic service recommended [facility] management of his fractures. Patient does have a sling for his right arm. Physician Oral Hygienist note has been reviewed by physician. Signing provider agrees with the documented findings, assessment, and plan of care. Patient Condition at Discharge: Stable Plan - Discharge Summary Discharge Rx Participant: Yes New Discharge Prescriptions: New Docusate [Colace] 100 mg PO BID #30 capsule HYDROcodone/APAP 7.5-325MG [[place] 7.5-325] 1 tab PO Q4H PRN 3 Days #18 tab PRN Reason: Pain Continue Levothyroxine Sodium 100 mcg PO DAILY metFORMIN HCL [Glucophage] 500 mg PO DAILY lisinopriL [Prinivil] 10 mg PO DAILY Naproxen 500 mg PO BID Citalopram Hydrobromide [CeleXA] 20 mg PO DAILY Discharge Medication List Levothyroxine Sodium 100 mcg PO DAILY 07/04/18 [History] Naproxen 500 mg PO BID 10/31/20 [History] lisinopriL [Prinivil] 10 mg PO DAILY 10/31/20 [History] metFORMIN HCL [Glucophage] 500 mg PO DAILY 10/31/20 [History] Citalopram Hydrobromide [CeleXA] 20 mg PO DAILY 11/11/21 [History] Docusate [Colace] 100 mg PO BID #30 capsule 11/15/21 [Rx] HYDROcodone/APAP 7.5-325MG [[place] 7.5-325] 1 tab PO Q4H PRN 3 Days #18 tab 09/29 [Rx] Follow up Appointment(s)/Referral(s): Jane Honeycutt MD [Primary Care Provider] - 1-2 days Glenn Manuel DO [Doctor of Osteopathic Medicine] - 2 Weeks Vic Allison DO [Doctor of Osteopathic Medicine] - 1 Week Best Rowe MD [STAFF PHYSICIAN] - 1 Week Devonte Kelley [NON-STAFF] - As Needed (LSO back brace) Activity/Diet/Wound Care/Special Instructions: 1. Patient may wear LSO brace for comfort and support while sitting upright at greater than 45, while working with therapy, and while ambulating; patient does not have to wear the brace while lying in bed or bathing 2. Patient should avoid excessive bending, twisting, and lifting; no lifting greater than 10 pounds Discharge Disposition: HOME SELF-CARE
== END 2021-11-15 17:32 | disposition home or self-care (01) | DRG 199 ==
LOC: EC 12:18 → 2SICU 13:46 → 4SSUR 11-14 10:44
PROVIDERS: ADMIT Surgery; ATTEND Surgery
DX: S27.2XXA Traumatic hemopneumothorax, initial encounter (principal); J96.01 Acute respiratory failure with hypoxia; S22.41XA Multiple fractures of ribs, right side, initial encounter for closed fracture; S32.039A Unspecified fracture of third lumbar vertebra, initial encounter for closed fracture; S32.029A Unspecified fracture of second lumbar vertebra, initial encounter for closed fracture; S32.019A Unspecified fracture of first lumbar vertebra, initial encounter for closed fracture; S32.049A Unspecified fracture of fourth lumbar vertebra, initial encounter for closed fracture; J98.11 Atelectasis; J90 Pleural effusion, not elsewhere classified; W19.XXXA Unspecified fall, initial encounter; S42.001A Fracture of unspecified part of right clavicle, initial encounter for closed fracture; S42.111A Displaced fracture of body of scapula, right shoulder, initial encounter for closed fracture; T79.7XXA Traumatic subcutaneous emphysema, initial encounter; E11.9 Type 2 diabetes mellitus without complications; E27.8 Other specified disorders of adrenal gland; S27.1XXA Traumatic hemothorax, initial encounter; W13.2XXA Fall from, out of or through roof, initial encounter; B19.20 Unspecified viral hepatitis C without hepatic coma; Y92.9 Unspecified place or not applicable; R07.89 Other chest pain; I95.9 Hypotension, unspecified; M51.36 Other intervertebral disc degeneration, lumbar region; R91.1 Solitary pulmonary nodule; I10 Essential (primary) hypertension; F32.A Depression, unspecified; F41.9 Anxiety disorder, unspecified; E03.9 Hypothyroidism, unspecified; M19.90 Unspecified osteoarthritis, unspecified site; Z79.890 Hormone replacement therapy; Z79.899 Other long term (current) drug therapy; Z79.84 Long term (current) use of oral hypoglycemic drugs; Z86.19 Personal history of other infectious and parasitic diseases; Z86.14 Personal history of Methicillin resistant Staphylococcus aureus infection; Z87.891 Personal history of nicotine dependence; Z83.3 Family history of diabetes mellitus; Z82.49 Family history of ischemic heart disease and other diseases of the circulatory system
CPT/HCPCS: 36415; 70450; 71045; 71260; 72125; 72170; 74177; 80048; 80053; 80306; 80320; 81001; 83605; 84484; 85025; 85610; 85730; 86850; 86900; 86901; 93005; 96374; 96376; 99285

== ENCOUNTER 2022-08-13 12:54 | Day surgery (SDC) | payer BC ==
[2022-08-13] MEDS ORDERED: LIDOCAINE 1% (10MG/ML) FOR IV START INTRADERMA PRN (13:14)
[2022-08-13] MEDS ORDERED: LACTATED RINGERS 1,000 ML IV SCH (13:14)
[2022-08-13 13:24] VITALS: TEMP 97
[2022-08-13 13:29] LABS: Glucose,Whole Blood 95 mg/dL (70-110)
[2022-08-13] MEDS ORDERED: PROPOFOL 10 MG/ML 20 ML VIAL IV ONE (14:00)
--- NOTE | 2022-08-13 14:04 | P.GSHP ---
History of Present Illness H&P Date: 08/13/22 Chief Complaint: Screening colonoscopy This a 7-year-old male presents today for screening colonoscopy. Patient denies a significant GI complaints. Past Medical History Past Medical History: Diabetes Mellitus, Hypertension, Liver Disease, Osteoarthritis (OA), Thyroid Disorder Additional Past Medical History / Comment(s): hx hepatitis C-tx 2010 History of Any Multi-Drug Resistant Organisms: MRSA Date of last positivie culture/infection: 11/02/20 MDRO Source:: Maxillary Sinus-Right Past Surgical History: Tonsillectomy Additional Past Surgical History / Comment(s): oral surgery, history of sinus surgery Past Anesthesia/Blood Transfusion Reactions: No Reported Reaction Past Psychological History: Depression Smoking Status: Former smoker Past Alcohol Use History: Daily Additional Past Alcohol Use History / Comment(s): quit smoking 20-25 yrs ago, smoked for 6 yrs, PT REPORTS DRINKING 2-3 BEER ON WEEKENDS Past Drug Use History: Methamphetamine Additional Drug Use History / Comment(s): History of IV drug abuse, 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 Father Family Medical History: Coronary Artery Disease (CAD), Diabetes Mellitus Additional Family Medical History / Comment(s): History of CABG, in his 90s Medications and Allergies Home Medications Medication Instructions Recorded Confirmed Type Levothyroxine Sodium 100 mcg PO DAILY 07/04/18 08/13/22 History Naproxen 500 mg PO BID 10/31/20 08/13/22 History lisinopriL [Prinivil] 10 mg PO DAILY 10/31/20 08/13/22 History metFORMIN HCL [Glucophage] 500 mg PO DAILY 10/31/20 08/13/22 History Citalopram Hydrobromide [CeleXA] 20 mg PO DAILY 11/11/21 08/13/22 History Allergies Allergy/AdvReac Type Severity Reaction Status Date / Time No Known Allergies Allergy Verified 08/13/22 13:15 Surgical - Exam Vital Signs Temp Pulse Resp BP Pulse Ox 97 F L 74 16 130/70 95 08/13/22 13:24 08/13/22 13:24 08/13/22 13:24 08/13/22 13:08/13/22 13:24 - General well developed, well nourished, no distress - Eyes PERRL - ENT normal pinna - Neck no masses - Respiratory normal expansion - Cardiovascular Rhythm: regular - Abdomen Abdomen: soft Assessment and Plan Assessment: We'll perform screening colonoscopy.
--- NOTE | 2022-08-13 14:14 | P.OP ---
Date of Procedure: 08/13/22 Preoperative Diagnosis: Screening colonoscopy Postoperative Diagnosis: Mild diverticulosis Procedure(s) Performed: Colonoscopy Anesthesia: MAC Surgeon: Tommy Khan Pathology: none sent Condition: stable Disposition: PACU Description of Procedure: The patient's placed on the endoscopy table in the lateral position. He received IV sedation. Digital rectal exam performed. This revealed no abnormalities. Flexible colonoscope was then placed patient anus and passed throughout the entire colon. Ileocecal valve was visualized. The cecum appeared normal. Scope was then brought back. The ascending colon, transverse colon appeared normal. In the descending; was mild diverticular changes. The s cope was then brought back and the rectum this appeared normal. Scope withdrawn for patient.
[2022-08-13 14:32] VITALS: BP 117/71; PULSE 77; RESP 17
== END 2022-08-13 15:00 | disposition home or self-care (01) ==
LOC: ORWHC2ENDO 12:54
PROVIDERS: ATTEND Surgery
DX: Z12.11 Encounter for screening for malignant neoplasm of colon (principal); K57.30 Diverticulosis of large intestine without perforation or abscess without bleeding; E11.9 Type 2 diabetes mellitus without complications; I10 Essential (primary) hypertension; M19.90 Unspecified osteoarthritis, unspecified site; E07.9 Disorder of thyroid, unspecified; F32.A Depression, unspecified; Z86.19 Personal history of other infectious and parasitic diseases; Z90.89 Acquired absence of other organs; Z98.890 Other specified postprocedural states; Z87.891 Personal history of nicotine dependence; Z82.49 Family history of ischemic heart disease and other diseases of the circulatory system; Z83.3 Family history of diabetes mellitus; Z79.84 Long term (current) use of oral hypoglycemic drugs
CPT/HCPCS: 45378